=== PATIENT | male | born 1965 | race Caucasian/White ===

== ENCOUNTER 2020-09-09 09:23 | Outpatient (REF) | payer OTHER, SELFPAY ==
--- NOTE | ~2020-09-09 | XR_ITS ---
EXAMINATION: XR CHEST CLINICAL INFORMATION: Asthma COMPARISON: None TECHNIQUE: 2 views of the chest were obtained. FINDINGS: No significant abnormality is noted involving the heart, lungs, mediastinum, bony thorax or soft tissues. XR/XR chest 2V IMPRESSION: Unremarkable examination.
[2020-09-09 10:03] LABS: MANUAL DIFF FLAG NO
[2020-09-09 10:13] LABS: Basophils Absolute Auto 0.1 X10*3/uL (0.0-0.2); Basophils Percent Auto 1.1 % (0-2); Eosinophils Absolute Auto 0.5 X10*3/uL (0.0-0.4); Eosinophils Percent Auto 5.7 % (0-4); Hematocrit 43.8 % (42-52); Hemoglobin 14.4 g/dl (14.0-18.0); Imm Gran Abs Auto 0.03 X10*3/uL (0.00-0.03); Imm Gran Pct Auto 0.4 % (0.0-0.4); Lymphocytes Absolute Auto 3.5 X10*3/uL (1.2-4.9); Lymphocytes Percent Auto 41.2 % (20-40); Mean Corpuscular HGB Conc 32.9 g/dl (31.0-36.0); Mean Corpuscular Hemoglobin 29.9 pg (27.0-33.0); Mean Corpuscular Volume 90.9 fL (80-98); Mean Platelet Volume 10.1 fL (9.4-12.4); Monocytes Absolute Auto 0.8 X10*3/uL (0.1-1.2); Monocytes Percent Auto 9.8 % (2-11); Neutrophils Absolute Auto 3.5 X10*3/uL (2.0-8.3); Neutrophils Percent Auto 41.8 % (45-73); Platelet Count 291 X10*3/uL (160-400); Red Blood Count 4.82 X10*6/uL (4.60-5.80); White Blood Count 8.4 X10*3/uL (4.8-10.8)
[2020-09-09 10:32] LABS: Alanine Aminotransferase 11 U/L (0-40); Alkaline Phosphatase 85 U/L (39-117); Anion Gap 9 (12-20); Aspartate Amino Transferase 18 U/L (5-37); Bilirubin Total 0.4 mg/dL (0.0-1.0); Blood Urea Nitrogen 11 mg/dL (9-16); Calcium 8.7 mg/dL (8.4-10.2); Carbon Dioxide 29 mmol/L (22-29); Chloride 107 mmol/L (96-108); Cholesterol 187 mg/dL; Estimated Glomerular Filt Rate > 60; Glucose Random 88 mg/dL (60-115); HDL Cholesterol 37 mg/dL; LDL Cholesterol Calculated 122 mg/dl; Potassium 4.4 mmol/L (3.3-5.1); Sodium 141 mmol/L (135-145); Total Protein 6.5 g/dL (6.5-8.0); Triglycerides 142 mg/dL
[2020-09-09 10:42] LABS: Free T4 (Free Thyroxine) 0.82 ng/dL (0.71-1.85); Prostate Specific Antigen Scr 3.64 ng/mL (<0.05-4.0); Thyroid Stimulating Hormone 1.73 uIU/mL (0.32-4.0)
[2020-09-10 12:58] LABS: Folate 6.7 ng/mL (> or = 4.0); Vitamin B12 354 pg/mL (200-900)
== END 2020-09-09 09:24 | disposition home or self-care (01) ==
LOC: HO.LAB 09:23
PROVIDERS: PCP Internal Medicine; Visit Provider Internal Medicine
DX: J45.20 Mild intermittent asthma, uncomplicated (principal); K21.9 Gastro-esophageal reflux disease without esophagitis; E78.00 Pure hypercholesterolemia, unspecified; Z12.5 Encounter for screening for malignant neoplasm of prostate
CPT/HCPCS: 36415; 71046; 80053; 80061; 82607; 82746; 84153; 84439; 84443; 85025

== ENCOUNTER → 2020-11-10 13:48 | Outpatient (BNVA) | payer OTHER, SELFPAY | PROVIDERS: PCP Internal Medicine; Referring Provider Internal Medicine; Visit Provider Internal Medicine | DX: R07.2 Precordial pain (principal); F17.200 Nicotine dependence, unspecified, uncomplicated | CPT/HCPCS: 93005 ==

== ENCOUNTER → 2021-03-22 10:53 | Outpatient (REF) | payer OTHER, SELFPAY ==
--- NOTE | 2021-03-22 10:56 | CA_ITS ---
Acquisition Time: 2021-03-22 11:03:10 Total Exercise Time: 00:08:35 Test Indications: CP Medications: SEE CHART Protocol: BRIGIDA Max HR: 176 BPM 106% of Pred: 166 BPM Max BP: 142/080 mmHG Max Work Load: 10.1 METS Exercise stress test with exercise 8 min 35 sec of Brigida protocol, with moderate shortness of breath, no chest discomfort during exercise, with a few isolated PVCs early in recovery, with normotensive response to exercise, without EKG changes meeting criteria for ischemia. When he layed down on the strecher just after peak exercise, he reported a 10 second pressure to right side of chest. Echo images obtained by tech at rest and immediately post peak exercise. Definity contrast used. Test reviewed with Dr Lee. STRESS ECHO : Technique : Images were obtained at rest and immediately post exercise within 1 minute Definty contrast was used to enhance endocardial definition Images were obtianed in multiple views and compared side to side. Findings : Images at rest were borderline due to off axis parasteranl views. Lv systolic function is normal with normal wall motion. Post exercise images are limited due to off axis views. There appear to be adequat overall augmentation of LV systolic function however regional wall motin abmormalities are difficult to assess. Conclusion : Non diagnostic stress echo. Consider alternative imaging if clinically indicated. Referred By: Nigel Stevenson Overread By: SCOOBY LEE MD
== END ==
LOC: HO.CARD 10:53
PROVIDERS: PCP Internal Medicine; Visit Provider Internal Medicine
DX: R07.2 Precordial pain (principal)
CPT/HCPCS: 93350; Q9957

== ENCOUNTER 2021-08-23 10:37 | Outpatient (REF) | payer OTHER, SELFPAY ==
[2021-08-23 14:12] LABS: Anion Gap 12 (12-20); Blood Urea Nitrogen 14 mg/dL (9-16); Calcium 9.3 mg/dL (8.4-10.2); Carbon Dioxide 26 mmol/L (22-29); Chloride 106 mmol/L (96-108); Estimated Glomerular Filt Rate > 60; Glucose Random 91 mg/dL (60-115); Potassium 4.6 mmol/L (3.3-5.1); Sodium 139 mmol/L (135-145)
== END 2021-08-23 10:38 | disposition home or self-care (01) ==
LOC: HO.10HDL 10:37
PROVIDERS: Visit Provider Nurse Practitioner Family
DX: R07.2 Precordial pain (principal); R06.02 Shortness of breath; R94.39 Abnormal result of other cardiovascular function study; F17.200 Nicotine dependence, unspecified, uncomplicated
CPT/HCPCS: 36415; 80048

== ENCOUNTER 2023-01-31 10:35 | Outpatient (AMB) | payer OTHER, SELFPAY ==
[2023-01-31 11:14] VITALS: BP 136/74; PULSE 83; O2SAT 97; BMI 26.6
--- NOTE | 2023-01-31 11:14 | A.OFFPC_ITS ---
Vital Signs 01/31/23 11:14 Height 6 ft 2 in Weight 207 lb BMI 26.6 BP 136/74 Blood Pressure Location Lt brachial Position Sitting Pulse 83 Pulse Source Pulse Oximeter Pulse Oximetry (%) 97 Oxygen Delivery Method Room Air Intake Visit Reasons: 3 month f/u Allergies codeine [CODEINE] Allergy (Unknown, Verified 01/31/23 11:15) LIGHT HEADED , nausea erythromycin base [ERYTHROMYCIN BASE] Allergy (Unknown, Verified 01/31/23 11:15) RASH Medication List - Last Reconciled 01/31/23 by Cammy Penaloza MD albuterol sulfate 90 mcg/actuation (ProAir HFA) 2 puffs inhalation Q6H PRN beclomethasone dipropionate 80 mcg/actuation (Qvar RediHaler) 1 inh inhalation Q12H lorazepam 1 mg PO BID 30 days omeprazole 40 mg PO DAILY quetiapine 100 mg PO BEDTIME 90 days sertraline 25 mg PO DAILY Tobacco use date assessed: 10/24/22 Dental Screening Dental Screen Date: 01/31/23 Did you have a dental visit in the last 12 months?: No Did you have a dental problem in the last 6 months where you did not have access to dental care?: No Was dental information given to patient?: No HPI 3 month f/u HPI Details 57-year-old male smoker with asthma GERD generalized anxiety disorder coming in for follow-up. May last seen advised colonoscopy patient is here for follow-up. Colonoscopy no showed is rescheduled to March 2023 patient continues to smoke and was hoping says to get some additional help with pills as well as on the patch. Patient asks about the CTA that was done August 2021 and question of aneurysm will follow-up on this. Also for the anxiety was asking for higher dose of lorazepam and quetiapine. Discussed that were putting him on Wellbutrin to help with anxiety will hold off from increase in lorazepam but for the Seroquel to help with sleep will increase the dose. PFSH Medical History Abnormal stress test Anxiety Degenerative cervical disc Herniation of left side of L4-L5 intervertebral disc Precordial chest pain Shortness of breath Smoker Surgical History Complete rotator cuff tear of left shoulder Family History Brother Prostate cancer Testicular cancer Renal cancer Ascending aorta dilatation Mother Ovarian cancer Father Multiple myeloma Social History Housing: House Alcohol intake: never Patient Tobacco Use Status: Current everyday Tobacco user Tobacco use type: Cigarette Cigarette Packs Per Day: 1 Cigarettes Per Day: 15 Years Smoked: 40 years. 08/2021 6 a day e-Cigarette/Vaping Use: Never Used Second Hand Smoke Exposure: No service: No Current occupational status: retired Cognitive needs: No Hearing needs: No Vision needs: No Questionnaire PHQ-9 Over the last 2 weeks, how often have you been bothered by any of the following problems? 1. Little interest or pleasure in doing things: not at all 2. Feeling down, depressed, or hopeless: not at all 3. Trouble falling or staying asleep, or sleeping too much: not at all 4. Feeling tired or having little energy: not at all 5. Poor appetite or overeating: not at all 6. Feeling bad about yourself - or that you are a failure or have let yourself or your family down: not at all 7. Trouble concentrating on things, such as reading the newspaper or watching television: not at all 8. Moving or speaking so slowly that other people could have noticed. Or the opposite - being so fidgety or restless that you have been moving around a lot more than usual: not at all 9. Thoughts that you would be better off or of hurting yourself in some way: not at all Total score: 0 Depression Screening Interpretation: Negative [id number] - PHQ-9 Billing: Yes Source: Developed by Drs. Inocencio Valle, Nupur Cooper, Kirt Fuller and colleagues, with an educational jameson from [employer]. Thrive Questionnaire Date Thrive assessed: 10/24/22 AUDIT C Alcohol Use Questionnaire (AUDIT-C) 1. How often do you have a drink containing alcohol?: Never Total Score: 0 CATALINO-7 AMB Questionnaire CATALINO-7 Date CATALINO - 7 assessed: 10/24/22 Source: Developed by Drs. Inocencio Valle, Nupur Cooper, Kirt Fuller and colleagues, with an educational jameson from [employer]. Physical exam (Primary Care) Vital Signs: Last Vital Signs Pulse 83 01/31/23 11:14 BP 136/74 01/31/23 11:14 Pulse Ox 97 01/31/23 11:14 Oxygen Delivery Method Room Air 01/31/23 11:14 BMI result Body Mass Index 26.6 Tobacco/Smoking Status: Tobacco use Status Tobacco use date assessed 10/24/22 01/31/23 11:19 Patient Tobacco Use Status Current everyday Tobacco 01/31/23 11:19 Tobacco use type Cigarette 01/31/23 11:19 e-Cigarette/Vaping Use Never Used 01/31/23 11:19 PHQ-9: PHQ-9 Score PHQ-9: Total score 0 01/31/23 11:42 Depression Screening Interpretation: Negative Thrive Assessment: Date of Thrive Assessment Date Thrive assessed 10/24/22 01/31/23 11:19 Const General: alert; No acute distress Eyes Conjunctivae: conjunctivae normal Resp Auscultation: clear to auscultation bilaterally Cardio Rate: regular rate Rhythm: regular rhythm GI Inspection: Yes normal to inspection Extrem General: Yes normal to inspection and No edema Assessment and Plan Assessment & Plan (1) Tobacco dependence: Code(s): F17.200 - Nicotine dependence, unspecified, uncomplicated Plan: Patient is advised strongly to stop smoking! (2) Generalized anxiety disorder: Comment: declined 05/2021 Code(s): F41.1 - Generalized anxiety disorder Plan: Continue with medications as needed. Anxiety medication added (3) Colon cancer screening: Code(s): Z12.11 - Encounter for screening for malignant neoplasm of colon Plan: Reminded about colon cancer screening- 2022 (4) GERD (gastroesophageal reflux disease): Code(s): K21.9 - Gastro-esophageal reflux disease without esophagitis Qualifiers: Esophagitis presence: without esophagitis Qualified Code(s): K21.9 - Gastro-esophageal reflux disease without esophagitis Plan: Avoid the foods that causes that usually spicy foods, tomato products, juices, coffee, soda and foods that your sensitive to. After eating do not lie down, allow 3-4 hours before in lie down. And keep the head of bed above 30 degrees to avoid the acid from going up. Orders: Orders Vitamin B12 and Folate Today K21.9 - Gastro-esophageal reflux disease without esophagitis Comprehensive Met. Panel Today K21.9 - Gastro-esophageal reflux disease without esophagitis Lipid Panel Today E78.00 - Pure hypercholesterolemia, unspecified, K21.9 - Gastro-esophageal reflux disease without esophagitis Prostate Specific Antigen Scr Today K21.9 - Gastro-esophageal reflux disease without esophagitis Free T4 (Free Thyroxine) Today K21.9 - Gastro-esophageal reflux disease without esophagitis Thyroid Stimulating Hormone Today K21.9 - Gastro-esophageal reflux disease without esophagitis Complete Blood Count Auto Diff Today K21.9 - Gastro-esophageal reflux disease without esophagitis Medications: New bupropion HCl (Wellbutrin SR) 150 mg PO BID 60 tabs 3RF F17.200 - Nicotine dependence, unspecified, uncomplicated nicotine 1 patch transdermal DAILY 28 ea 0RF F17.200 - Nicotine dependence, unspecified, uncomplicated nicotine 1 patch transdermal DAILY 28 ea 0RF F17.200 - Nicotine dependence, unspecified, uncomplicated Changed From quetiapine 100 mg PO BEDTIME 90 days 90 tabs 3RF F41.1 - Generalized anxiety disorder To quetiapine 150 mg PO BEDTIME 90 days 90 tabs 3RF F41.1 - Generalized anxiety disorder Coding Level of Care Code Est Pt Level 4 (26872) Diagnoses Tobacco dependence F17.200 Generalized anxiety disorder F41.1 Colon cancer screening Z12.11 GERD (gastroesophageal reflux disease) K21.9 Esophagitis presence: without esophagitis
== END 2023-01-31 11:56 | disposition home or self-care (01) ==
PROVIDERS: PCP Internal Medicine; Visit Provider Internal Medicine
DX: F17.200 Nicotine dependence, unspecified, uncomplicated (principal); F41.1 Generalized anxiety disorder; Z12.11 Encounter for screening for malignant neoplasm of colon; K21.9 Gastro-esophageal reflux disease without esophagitis
CPT/HCPCS: 99214

== ENCOUNTER 2023-03-08 13:10 | Outpatient (AMB) | payer OTHER, SELFPAY ==
--- NOTE | 2023-03-08 07:50 | A.OFFVIS_ITS ---
Intake Intake Visit Reasons: LDCT SD Allergies codeine [CODEINE] Allergy (Unknown, Verified 01/31/23 11:15) LIGHT HEADED , nausea erythromycin base [ERYTHROMYCIN BASE] Allergy (Unknown, Verified 01/31/23 11:15) RASH HPI LDCT SD HPI Details Initial visit for this 57yo smoker with a 25PYH. Patient has been smoking since age 15 for 42 years at 1/2-4ppd. . Denies marijuana use. Denies second hand smoke exposure. 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 Denies known family history of lung cancer. Denies personal history of cancers. . Denies chest CT in last year. Mid ascending aorta measured 3.8cm on 09/07/2021 chest CTA - no suspicious nodules noted. . Denies recent travel outside the [place]. Denies recent respiratory illness or recent hospitalization for respiratory issues. Reports testing positive for COVID. 08/2021 Admits receiving COVID Vaccine. x2. . Denies fever, chills, new/worsening cough, hemoptysis, hoarseness or dysphagia. Denies significant chest pain, significant dyspnea or unintentional weight loss. Patient Lung Cancer Screening Questionnaire reviewed with patient by provider. . Shared Decision Making Completed. Patient meets criteria. Discussed in detail with patient, the risk vs benefit of LDCT screening. Patient consents to proceed with scan. Discussed smoking cessation. [facility] Medical History (Updated 03/08/23 @ 13:18 by Alexandra Figueroa PA-C) History of COVID-19 Nicotine dependence, cigarettes, uncomplicated Shortness of breath Abnormal stress test Precordial chest pain Degenerative cervical disc Anxiety Herniation of left side of L4-L5 intervertebral disc Surgical History (Updated 02/01/23 @ 12:19 by Alexandra Figueroa PA-C) History of esophagogastroduodenoscopy (EGD) History of colonoscopy Complete rotator cuff tear of left shoulder Family History Brother Prostate cancer Testicular cancer Renal cancer Ascending aorta dilatation Mother Ovarian cancer Father Multiple myeloma Social History (Updated 03/08/23 @ 13:18 by Alexandra Figueroa PA-C) Housing: House Alcohol intake: never Patient Tobacco Use Status: Current everyday Tobacco user Tobacco use type: Cigarette Cigarettes Per Day: 15 Years Smoked: onset 15yo, 1/2-3/4ppd x 42yrsm 25pyh) e-Cigarette/Vaping Use: Never Used Second Hand Smoke Exposure: No service: No Current occupational status: retired Cognitive needs: No Hearing needs: No Vision needs: No Assessment & Plan Assessment & Plan (1) Nicotine dependence, cigarettes, uncomplicated: Comment: (Current smoker - onset 15yo, 1/2-3/4ppd x 42yrsm 25pyh) Code(s): F17.210 - Nicotine dependence, cigarettes, uncomplicated Plan: - SDM visit completed today in office. - Patient meets criteria for LDCT for lung cancer screening purposes and is asymptomatic. - Smoking cessation counseling offered. Patients can always call [phone]. - Will arrange for a LDCT scan of the chest for screening purposes at [facility]. - Risks, benefits, and alternatives were discussed in detail and the patient agrees to proceed. - Risks discussed include but are not limited to: radiation exposure, anxiety during testing and while awaiting results, false negatives, false positives and possibility of additional intervention such as further imaging or surgical procedures for benign disease. - Benefits are obviously detection of lung cancer at an early stage which can lead to improved outcomes. - Discussed the importance of screening program compliance with adherence to yearly LDCT scan as scheduled - or sooner interval scans for personalized screening regimen. - Discussed follow up plan. Our office will send a letter discussing results and if needed set up phone call and office visit based on CT findings. - Patient educated on results categorization and the management decisions for suspicious findings potentially found on the screening LDCT scan. Any patient with a Lung RADS score of 3 or 4 will be reviewed by a multidisciplinary team at [facility] to form a plan of action in regards to scan findings. - If further work up is warranted for a suspicious lung finding this will be followed by the Lung Cancer Screening program in conjunction with the Thoracic Surgery Department at [facility]. - A copy of the office note and LDCT will be sent to the patient's PCP - as well as documentation on any associated further plans of care. - Incidental findings on LDCT are the PCP's responsibility. These findings are indicated with an S finding on the LDCT Assessment. A note discussing the findings will be sent to the PCP who is then responsible for further management. - All questions answered.? Coding Level of Care Code Lung Cancer Screening G0296 Diagnoses Nicotine dependence, cigarettes, uncomplicated F17.210
== END 2023-03-08 13:45 | disposition home or self-care (01) ==
PROVIDERS: PCP Internal Medicine; Visit Provider Physician Assistant Medical
DX: F17.210 Nicotine dependence, cigarettes, uncomplicated (principal)
CPT/HCPCS: G0296

== ENCOUNTER 2023-03-08 13:33 | Outpatient (REF) | payer OTHER, SELFPAY ==
--- NOTE | ~2023-03-08 | CT_ITS ---
EXAMINATION: CT CHEST SCREENING CLINICAL INFORMATION: Nicotine dependence; 40 pack-year smoking history; current smoker. COMPARISON: None available. TECHNIQUE: Multidetector volumetric CT imaging of the chest is performed without contrast using low dose technique. Additional 2D coronal and sagittal reformatted images and axial 3D maximum intensity projection (MIP) images are generated on the CT workstation. This CT examination was performed using dose optimization techniques as appropriate, variously including the following: *Automated exposure control *Adjustment of mA and/or kV according to patient size (this includes techniques or standardized protocols for targeted exams where dose is matched to indication/reason for exam; i.e. extremities or head) *Use of iterative reconstruction technique DLP: 59 mGy-cm FINDINGS: LUNGS: There is mild biapical pleural and parenchymal scarring. Within the anterior segment of the right upper lobe (5:20), a 9 x 5 mm spiculated nodule is seen. Within the lateral basal segment of the right lower lobe (5:331), a 1.0 x 0.6 cm spiculated nodule versus focus of scar/subsegmental atelectasis is seen. There is no mass, infiltrate or groundglass opacity. No generalized increase is seen in peripheral interlobular septal markings. At the medial right base (5: Decreased 97), a 2.2 cm bulla is noted. No generalized small airway thickening is seen. The central airways appear patent. MEDIASTINUM: The mediastinum is normal. CORONARY ARTERY CALCIFICATION: Minimal. PLEURA: There is no pleural effusion. No pleural mass or thickening. AXILLA: No lymphadenopathy. UPPER ABDOMEN: Unremarkable OSSEOUS STRUCTURES: There is mild thoracolumbar spondylosis. No acute or aggressive osseous abnormality is seen. CT/CT lung screening IMPRESSION: 1. 9 mm right upper lobe and 1.0 cm right lower lobe nodular densities are seen. Whether these represent true nodules are are related to postoperative scarring is not appreciated with certainty. 2. No mass, infiltrate or groundglass opacity is seen. 3. There is no thoracic lymphadenopathy or pleural effusion. 4. No aggressive osseous lesion is seen ASSESSMENT: Lung-RADS category 4A: Suspicious RECOMMENDATION: Short interval 3 month follow up low dose CT chest. Consider PET/CT.
== END 2023-03-08 13:34 | disposition home or self-care (01) ==
LOC: HO.CT 13:33
PROVIDERS: PCP Internal Medicine; Visit Provider Physician Assistant Medical
DX: Z12.2 Encounter for screening for malignant neoplasm of respiratory organs (principal); F17.210 Nicotine dependence, cigarettes, uncomplicated
CPT/HCPCS: 71271; G0296

== ENCOUNTER 2023-03-26 12:07 | Outpatient (REF) | payer OTHER, SELFPAY ==
--- NOTE | ~2023-03-26 | PE_ITS ---
EXAMINATION: Fluorine-18 FDG PET/CT Scan CLINICAL INDICATION: Initial treatment management. Pulmonary nodule. PROCEDURE: 55 minutes following the intravenous administration of 23.5 mCi of fluorine 18 FDG, images from the base of the skull to the mid thighs were obtained using a combined PET/CT scanner with CT scan based attenuation correction. No oral contrast was administered. No intravenous contrast was administered. Transverse, coronal, sagittal, and volume reconstruction projections were obtained. The patient's blood glucose as determined by a finger stick, was 88 mg/dl immediately prior to injection. Total CT exam dose-length product 805.83 mGy-cm * These CT images were obtained using dose optimization techniques as appropriate, variously including the following: Automated exposure control * Adjustment of mA and/or kV according to patient size (this includes techniques or standardized protocols for targeted exams where dose is matched to indication/reason for exam; i.e. extremities or head) * Use of iterative reconstruction technique COMPARISON: No previous PET/CT scan is available for comparison. CT scan of the chest dated 03/08/2023 is available for comparison. The report of a CT scan of the abdomen and pelvis dated 08/21/2010 is available, but the images from that study are not available for review. FINDINGS: (Slice numbers described in this report are numbered superiorly to inferiorly with slice #1 in the head) NECK AND VISUALIZED HEAD: No foci of abnormal FDG activity are noted. The distribution of FDG activity is physiological. There is no cervical lymphadenopathy. THORAX: Small pulmonary nodules visualized on the 03/08/[address] scan are again visualized. These include a spiculated 0.8 x 0.4 cm nodule anteriorly in the right upper lobe, slice 79/267. This is too small to be characterized on the FDG PET images. It appears unchanged compared to the 03/08/2023 study. Also visualized this posterolaterally in the right lower lobe a 1.1 x 0.5 cm spiculated nodule, also too small to be characterized on the FDG PET images. No additional suspicious nodules are visualized. There are no foci of abnormal FDG activity in the chest. Minimal biapical scarring is present with no associated abnormal FDG activity. There is no mediastinal, supraclavicular, or axillary lymphadenopathy. There is no pleural or pericardial fluid, or pneumothorax. ABDOMEN AND PELVIS: There are no foci of abnormal FDG activity in the abdomen or pelvis. The liver, gallbladder, and spleen are unremarkable. The kidneys, adrenal glands and pancreas are unremarkable. There is mild FDG activity throughout the gastrointestinal tract without a suspicious focal component, likely physiological. There is mild diverticulosis without evidence of diverticulitis. The hollow viscera are otherwise unremarkable. The prostate gland is enlarged measuring 5.2 cm in largest transverse dimension. There is mild diffuse FDG activity in the prostate without a focal component, likely physiological. The pelvic organs are otherwise unremarkable. MUSCULOSKELETAL: There are no foci of abnormal FDG activity in the osseous structures. There are mild degenerative changes in the spine, most prominently adjacent to the L5/S1 disc space but there is no associated abnormal FDG activity. There are no suspicious sclerotic or lytic lesions visualized. VASCULAR: Scattered vascular calcifications are present. Reference SUVmax Levels: Mediastinal Blood Pool: 2.7, Slice 94/267 Liver: 4.2, Slice 131/267 PET/PET CT fusion skull to thigh IMPRESSION: 1. Small pulmonary nodules are visualized in the right lung as described above. These are too small to be accurately characterized on the FDG PET images. Follow-up with diagnostic CT imaging in approximately 3 months is recommended. 2. Prostatomegaly. 3. No additional abnormalities suspicious for metastatic or other malignant lesions are noted.
== END 2023-03-26 12:08 | disposition home or self-care (01) ==
LOC: HO.PET 12:07
PROVIDERS: PCP Internal Medicine; Visit Provider Surgery
DX: Z13.89 Encounter for screening for other disorder (principal)

== ENCOUNTER → 2023-05-15 13:48 | Outpatient (REF) | payer OTHER, SELFPAY ==
--- NOTE | 2023-05-15 13:52 | CA_ITS ---
Transthoracic Echocardiogram Patient (Last, First, Middle): Cristino Curtis J Gender: Male Date of : 1965 Age: 57 Procedure Date: 05/15/2023 Procedure Type: Transthoracic Echocardiogram Location: OP Height: 187.96 cm Weight: 99.79 kg BSA: 2.26 m2 Heart Rate: 70 bpm BP: 158 / 72 mmHg Control Chemist: SB Referring MD: Cammy Penaloza MD Symptoms: I77.810 - Thoracic aortic ectasia Study Quality: Adequate ECG Rhythm: Sinus Conclusions: - The left ventricular systolic function is normal. The visually estimated ejection fraction is between 55-60%. - The basal inferior, mid inferoseptal, and basal anteroseptal segments are hypokinetic. - No obvious valvular pathology seen on this study. - There is mild dilatation of the ascending aorta measuring 4.00 cm. Findings Left Ventricle Normal left ventricular cavity size. There is normal left ventricular wall thickness. The left ventricular systolic function is normal. The visually estimated ejection fraction is between 55-60%. Diastolic function is normal for age. Wall Motion Rest Echo Findings The basal inferior, mid inferoseptal, and basal anteroseptal segments are hypokinetic. Right Ventricle Normal right ventricular cavity size and systolic function. Atria Both atria are normal in size. Aortic Valve There is a normal trileaflet aortic valve. There is no aortic valve stenosis. There is no aortic valve regurgitation. Mitral Valve The mitral valve appears normal. There is no mitral valve regurgitation. There is no mitral valve stenosis. Pulmonic Valve The pulmonic valve is likely normal. Tricuspid Valve Normal tricuspid valve structure. There is trace tricuspid valve regurgitation. There is no evidence of pulmonary hypertension. Great Vessels There is mild dilatation of the ascending aorta measuring 4.00 cm. Venous The inferior vena cava is normal in size and collapses greater than 50% with inspiration. Pericardium/Pleural There is no evidence of pericardial effusion. Prior Study Comparison No prior study available for comparison. Recommendations, Care & Conclusions No obvious valvular pathology seen on this study. Measurements 2D Linear Measurements IVSd: 0.86 0.6-0.9/0.6-1.0 cm LVIDd: 4.05 3.9-5.3/4.2-5.9 cm LVIDd Index: 1.79 2.4-3.2/2.2-3.1 cm/m2 LVIDs: 3.04 2.0-3.6 cm LVPWd: 0.69 0.7-1.1 cm LA Diam: 2.80 2.7-3.8/3.0-4.0 cm LAIDs Index: 1.24 1.5-2.3 cm/m2 LV Mass: 113.65 67-162/88-224 g LV Mass Index: 50.29 43-95/49-115 g/m2 LVOT Diam: 2.50 3.0+(-)1.3 cm 2D Systolic Function EF 2C: 56.40 >55% Mitral Valve MV Pk E: 0.59 MV PK A: 0.54 MV Decel Time: 257.00 E/A: 1.10 E'Lateral: 7.94 E'Medial: 7.62 E/E' Med: 7.70 E/E' Lat: 7.40 PHT: 75.00 MVA PHT: 2.93 Decel [place]: 2.28 Aortic Valve AoV Pk Armando: 1.21 AoV Mn Armando: 0.84 AoV VTI: 0.24 AoV Pk Grad: 6.00 Aov Mn Grad: 3.00 TRELL Cont.VTI: 4.32 LVOT LVOT Pk Armando: 1.08 LVOT Mn Armando: 0.78 LVOT VTI: 0.21 LVOT Pk Grad: 5.00 LVOT Mn Grad: 3.00 LVOT Diam: 2.50 LVOT Area: 4.91 Diastolic Function MV Pk E: 0.59 MV Pk A: 0.54 E/A: 1.10 E'Medial: 7.62 E/E' Med: 7.70 E' Laterial: 7.94 E/E' Lat: 7.40 Right Ventricle TAPSE (mm): 19.40 TVS' Armando: 12.50 Tricuspid Valve TR Pk Armando: 1.96 TR Pk Grad: 15.00 RA Press: 3.00 RVSP: 18.00 Great Vessels Aorta Sinus of Valsalva: 3.50 2.0-3.5 cm Ao Asc: 4.00 2.1-3.4 cm Pulmonary Veins Pulm Vein S/D 1.00 Pulmonary Valve PV Pk Armando: 0.76 Peak PV Grad: 2.00 Updated in Other Vendor System with Status of Final Nigel Stevenson MD electronically signed on 05/17/2023 12:09:45 PM with status of Final
[2023-05-15 14:00] LABS: MANUAL DIFF FLAG NO
[2023-05-15 14:35] LABS: Basophils Absolute Auto 0.1 X10*3/uL (0.0-0.2); Basophils Percent Auto 1.4 % (0-2); Eosinophils Absolute Auto 0.4 X10*3/uL (0.0-0.4); Eosinophils Percent Auto 4.7 % (0-4); Hematocrit 45.3 % (42.0-52.0); Hemoglobin 15.2 g/dl (14.0-18.0); Imm Gran Abs Auto 0.02 X10*3/uL (0.00-0.03); Imm Gran Pct Auto 0.2 % (0.0-0.4); Lymphocytes Absolute Auto 3.6 X10*3/uL (1.2-4.9); Lymphocytes Percent Auto 40.5 % (20-40); Mean Corpuscular HGB Conc 33.6 g/dl (31.0-36.0); Mean Corpuscular Hemoglobin 30.5 pg (27.0-33.0); Mean Corpuscular Volume 90.8 fL (80.0-98.0); Mean Platelet Volume 10.1 fL (9.4-12.4); Monocytes Absolute Auto 0.7 X10*3/uL (0.1-1.2); Monocytes Percent Auto 8.4 % (2-11); Neutrophils Absolute Auto 3.9 x10*3/uL (2.0-8.3); Neutrophils Percent Auto 44.8 % (45-73); Platelet Count 375 X10*3/uL (160-400); Red Blood Count 4.99 X10*6/uL (4.60-5.80); Red Cell Distribution Width 13.4 % (11.0-16.0); White Blood Count 8.8 X10*3/uL (4.8-10.8)
[2023-05-15 15:23] LABS: Alanine Aminotransferase 14 U/L (0-40); Alkaline Phosphatase 94 U/L (39-117); Anion Gap 10 (12-20); Aspartate Amino Transferase 23 U/L (5-37); Bilirubin Total 0.3 mg/dL (0.0-1.0); Blood Urea Nitrogen 10 mg/dL (9-16); Calcium 9.4 mg/dL (8.4-10.2); Carbon Dioxide 28 mmol/L (22-29); Chloride 106 mmol/L (96-108); Cholesterol 195 mg/dL (<200); Estimated Glomerular Filt Rate > 60; Glucose Random 96 mg/dL (60-115); HDL Cholesterol 33 mg/dL (>40); LDL Cholesterol Calculated 124 mg/dL (<100); Potassium 4.1 mmol/L (3.3-5.1); Sodium 140 mmol/L (135-145); Total Protein 7.1 g/dL (6.5-8.0); Triglycerides 192 mg/dL (<150)
[2023-05-15 15:33] LABS: Free T4 (Free Thyroxine) 0.92 ng/dL (0.71-1.85); Thyroid Stimulating Hormone 1.61 uIU/mL (0.32-4.0)
[2023-05-15 15:41] LABS: Folate 5.4 ng/mL (> or = 4.0); Prostate Specific Antigen Scr 4.16 ng/mL (<0.05-4.0); Vitamin B12 406 pg/mL (200-900)
== END ==
LOC: HO.CARD 13:48
PROVIDERS: PCP Internal Medicine; Visit Provider Internal Medicine
DX: Z12.5 Encounter for screening for malignant neoplasm of prostate (principal); I77.810 Thoracic aortic ectasia; E78.00 Pure hypercholesterolemia, unspecified; K21.9 Gastro-esophageal reflux disease without esophagitis
CPT/HCPCS: 36415; 80053; 80061; 82607; 82746; 84153; 84439; 84443; 85025; 93306

== ENCOUNTER → 2023-05-15 13:52 | Outpatient (BNV) | payer OTHER, SELFPAY | PROVIDERS: PCP Internal Medicine; Visit Provider Internal Medicine | DX: I77.810 Thoracic aortic ectasia (principal) | CPT/HCPCS: 93306 ==

== ENCOUNTER 2023-06-14 09:27 | Outpatient (AMB) | payer OTHER, SELFPAY ==
[2023-06-14 09:33] VITALS: BP 120/90; PULSE 82; RESP 17; BMI 27.5
--- NOTE | 2023-06-14 09:33 | MHC.PC.OV ---
Vital Signs 06/14/23 09:33 Height 6 ft 2 in Weight 214 lb BMI 27.5 BP 120/90 H Blood Pressure Location Lt brachial Position Sitting Respiration 17 Pulse 82 Pulse Source Palpation Intake Visit Reasons: Med Follow up Shutdown Planner Required: No Accompanied by: Self / Same As Patient Allergies codeine [CODEINE] Allergy (Unknown, Verified 06/14/23 09:34) LIGHT HEADED , nausea erythromycin base [ERYTHROMYCIN BASE] Allergy (Unknown, Verified 06/14/23 09:34) RASH Tobacco use date assessed: 10/24/22 Dental Screening Dental Screen Date: 06/14/23 Did you have a dental visit in the last 12 months?: No Did you have a dental problem in the last 6 months where you did not have access to dental care?: Yes Was dental information given to patient?: Yes HPI Med Follow up HPI Details 57-year-old overweight male smoker with generalized anxiety disorder GERD last seen in January 2023 advised colonoscopy. Patient has a mild dilatation of the ascending aorta and the echocardiogram done May 2020 showing left ventricular systolic function of 55-60% has a basal inferior mid inferoseptal and basal anteroseptal segments hypokinetic mild dilatation of the ascending aorta measuring 4 cm.. Patient also had a PET scan done showing small pulmonary nodules in the right lung advised follow-up diagnostic CT in 3 months this was done due to a CT scan done in March 2023 for 9 mm upper lobe 1 cm right lower lobe nodule. repeat CT scan 06/27/2023- decreased 5 cigarettes a day [facility] Medical History (Updated 06/14/23 @ 10:36 by Cammy Penaloza MD) History of COVID-19 Nicotine dependence, cigarettes, uncomplicated Shortness of breath Abnormal stress test Precordial chest pain Degenerative cervical disc Anxiety Herniation of left side of L4-L5 intervertebral disc Surgical History History of esophagogastroduodenoscopy (EGD) History of colonoscopy Complete rotator cuff tear of left shoulder Family History Brother Prostate cancer Testicular cancer Renal cancer Ascending aorta dilatation Mother Ovarian cancer Father Multiple myeloma Social History Housing: House Alcohol intake: never Patient Tobacco Use Status: Current everyday Tobacco user Tobacco use type: Cigarette Cigarettes Per Day: 15 Years Smoked: onset 15yo, 1/2-3/4ppd x 42yrsm 25pyh) Packs per year/per ci.00 e-Cigarette/Vaping Use: Never Used Second Hand Smoke Exposure: No service: No Current occupational status: retired 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 Inocencio Valle, Nupur Cooper, Kirt Fuller and colleagues, with an educational jameson from [employer]. Physical exam (Primary Care) Vital Signs: Last Vital Signs Pulse 82 06/14/23 09:33 Resp 17 06/14/23 09:33 BP 120/90 H 06/14/23 09:33 BMI result Body Mass Index 27.5 Tobacco/Smoking Status: Tobacco use Status Tobacco use date assessed 10/24/22 06/14/23 09:34 Patient Tobacco Use Status Current everyday Tobacco 06/14/23 09:34 Tobacco use type Cigarette 06/14/23 09:34 e-Cigarette/Vaping Use Never Used 06/14/23 09:34 Thrive Assessment: Date of Thrive Assessment Date Thrive assessed 10/24/22 06/14/23 09:34 Const General: alert; No acute distress Eyes Conjunctivae: conjunctivae normal Resp Auscultation: clear to auscultation bilaterally Cardio Rate: regular rate Rhythm: regular rhythm GI Inspection: Yes normal to inspection Extrem General: Yes normal to inspection and No edema Assessment and Plan Assessment & Plan (1) Pulmonary nodules: Comment: (9x5cm RUL spiculated nodule, 10x6mm RLL spiculated nodule on 03/08/23 LDCT - plan is for PFTs, PET scan and f/u with Dr. Hand at [facility]) Code(s): R91.8 - Other nonspecific abnormal finding of lung field Plan: Patient is being followed up by the thoracic surgeon concern about the nodule in the CT scan and was followed up with a PET scan which was negative (2) Tobacco abuse: Code(s): Z72.0 - Tobacco use Plan: Patient is strongly advised to stop smoking summation (3) Abnormal PSA: Code(s): R97.20 - Elevated prostate specific antigen [PSA] Plan: Will need to do a repeat testing of the prostate number (4) Ascending aorta dilatation: Comment: (mid ascending aorta measured 3.8cm on 09/07/2021 chest CTA) May 2023 4 cm Code(s): I77.810 - Thoracic aortic ectasia Plan: May 2023 test 4 cm will continue to follow-up (5) Asthma: Code(s): J45.909 - Unspecified asthma, uncomplicated Qualifiers: Asthma severity: mild Asthma persistence: intermittent Asthma complication type: uncomplicated Qualified Code(s): J45.20 - Mild intermittent asthma, uncomplicated Plan: Stop smoking! (6) GERD (gastroesophageal reflux disease): Code(s): K21.9 - Gastro-esophageal reflux disease without esophagitis Qualifiers: Esophagitis presence: without esophagitis Qualified Code(s): K21.9 - Gastro-esophageal reflux disease without esophagitis Plan: Avoid the foods that causes that usually spicy foods, tomato products, juices, coffee, soda and foods that your sensitive to. After eating do not lie down, allow 3-4 hours before in lie down. And keep the head of bed above 30 degrees to avoid the acid from going up. (7) Generalized anxiety disorder: Comment: declined 05/2021 Code(s): F41.1 - Generalized anxiety disorder Plan: Continue with medications (8) Abnormal echocardiogram: Comment: 05/2023The left ventricular systolic function is normal. The visually estimated ejection fraction is between 55-60%. - The basal inferior, mid inferoseptal, and basal anteroseptal segments are hypokinetic. - No obvious valvular pathology seen on this study. - There is mild dilatation of the ascending aorta measuring 4.00 cm. Code(s): R93.1 - Abnormal findings on diagnostic imaging of heart and coronary circulation Plan: referral cardiology (9) Blood pressure elevated without history of HTN: Code(s): R03.0 - Elevated blood-pressure reading, without diagnosis of hypertension Plan: monitor BP at home and record and ff up Orders: Referrals Cardiology Referral R93.1 - Abnormal findings on diagnostic imaging of heart and coronary circulation Medications: New budesonide-formoterol 160-4.5 mcg/actuation (Symbicort) 2 puffs inhalation Q12H 10.2 grams 4RF J45.20 - Mild intermittent asthma, uncomplicated Refilled lorazepam 1 mg PO BID 60 tabs 0RF 30 days F41.9 - Anxiety disorder, unspecified Discontinued bupropion HCl (Wellbutrin SR) Discontinued Reason: Patient Refused 150 mg PO BID 60 tabs 3RF F17.200 - Nicotine dependence, unspecified, uncomplicated Coding Level of Care Code Est Pt Level 4 (91740) Diagnoses Pulmonary nodules R91.8 Tobacco abuse Z72.0 Abnormal PSA R97.20 Ascending aorta dilatation I77.810 Mild intermittent asthma without complication J45.20 Asthma severity: mild Asthma persistence: intermittent Asthma complication type: uncomplicated Gastroesophageal reflux disease without esophagitis K21.9 Esophagitis presence: without esophagitis Generalized anxiety disorder F41.1 Abnormal echocardiogram R93.1 Blood pressure elevated without history of HTN R03.0
== END 2023-06-14 10:45 | disposition home or self-care (01) ==
PROVIDERS: PCP Internal Medicine; Visit Provider Internal Medicine
DX: R91.8 Other nonspecific abnormal finding of lung field (principal); Z72.0 Tobacco use; R97.20 Elevated prostate specific antigen [PSA]; I77.810 Thoracic aortic ectasia; J45.20 Mild intermittent asthma, uncomplicated; K21.9 Gastro-esophageal reflux disease without esophagitis; F41.1 Generalized anxiety disorder; R93.1 Abnormal findings on diagnostic imaging of heart and coronary circulation; R03.0 Elevated blood-pressure reading, without diagnosis of hypertension
CPT/HCPCS: 99214

== ENCOUNTER 2023-06-27 12:45 | Outpatient (REF) | payer OTHER, SELFPAY | END 2023-06-27 12:46 | disposition home or self-care (01) | LOC: HO.CT 12:45 | PROVIDERS: PCP Internal Medicine; Visit Provider Surgery | DX: R91.8 Other nonspecific abnormal finding of lung field (principal) | CPT/HCPCS: 71250 ==

== ENCOUNTER 2023-07-22 12:57 | Outpatient (AMB) | payer OTHER, SELFPAY ==
--- NOTE | 2023-07-22 12:58 | A.OFFPC_ITS ---
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: No Allergies codeine [CODEINE] Allergy (Unknown, Verified 07/22/23 12:59) LIGHT HEADED , nausea erythromycin base [ERYTHROMYCIN BASE] Allergy (Unknown, Verified 07/22/23 12:59) RASH Tobacco use date assessed: 07/22/23 Dental Screening Dental Screen Date: 07/22/23 Did you have a dental visit in the last 12 months?: Yes Did you have a dental problem in the last 6 months where you did not have access to dental care?: No Was dental information given to patient?: Patient has dentist HPI smoker , anxiety HPI Details 58-year-old overweight male smoker with a history of pulmonary nodules abnormal PSA abdominal aorta dilatation asthma GERD generalized anxiety disorder coming in for follow-up. Patient was referred cardiology. And as for colonoscopy patient is overdue. CT scan of the chest done in July 2023. Nodules probably benign advised to repeat in 6 months. As for the ascending aorta aneurysm advised referral to Cardiology. BP good at home - echo results given to pateint. hx of heart arrhythmia. [facility] Medical History (Updated 07/22/23 @ 13:22 by Cammy Penaloza MD) History of COVID-19 Nicotine dependence, cigarettes, uncomplicated Shortness of breath Abnormal stress test Precordial chest pain Degenerative cervical disc Anxiety Herniation of left side of L4-L5 intervertebral disc Surgical History History of esophagogastroduodenoscopy (EGD) History of colonoscopy Complete rotator cuff tear of left shoulder Family History Brother Prostate cancer Testicular cancer Renal cancer Ascending aorta dilatation Mother Ovarian cancer Father Multiple myeloma Social History Housing: House Alcohol intake: never Patient Tobacco Use Status: Current everyday Tobacco user Tobacco use type: Cigarette Cigarettes Per Day: 15 Years Smoked: onset 15yo, 1/2-3/4ppd x 42yrsm 25pyh) Packs per year/per ci.00 e-Cigarette/Vaping Use: Never Used Second Hand Smoke Exposure: No service: No Current occupational status: retired 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 1. Little interest or pleasure in doing things: not at all 2. Feeling down, depressed, or hopeless: not at all 3. Trouble falling or staying asleep, or sleeping too much: not at all 4. Feeling tired or having little energy: not at all 5. Poor appetite or overeating: not at all 6. Feeling bad about yourself - or that you are a failure or have let yourself or your family down: not at all 7. Trouble concentrating on things, such as reading the newspaper or watching television: not at all 8. Moving or speaking so slowly that other people could have noticed. Or the opposite - being so fidgety or restless that you have been moving around a lot more than usual: not at all 9. Thoughts that you would be better off or of hurting yourself in some way: not at all Total score: 0 Depression Screening Interpretation: Negative Depression Screening Done: Yes Source: Developed by Drs. Inocencio Valle, Nupur Cooper, Kirt Fuller and colleagues, with an educational jameson from [employer]. Thrive Questionnaire Date Thrive assessed: 07/22/23 AUDIT C Alcohol Use Questionnaire (AUDIT-C) 1. How often do you have a drink containing alcohol?: Never Total Score: 0 CATALINO-7 AMB Questionnaire CATALINO-7 Date CATALINO - 7 assessed: 07/22/23 Feeling nervous, anxious, or on edge: 0 = Not at all Not being able to stop or control worryin = Not at all Worrying too much about different things: 0 = Not at all Trouble relaxin = Not at all Being so restless that it is hard to sit still: 0 = Not at all Becoming easily annoyed or irritable: 0 = Not at all Feeling afraid as if something awful might happen: 0 = Not at all Total CATALINO-7 score (0-4 normal; 5-9 mild; 10-14 moderate; 15-21 severe): 0 Source: Developed by Drs. Inocencio Valle, Nupur Cooper, Kirt Fuller and colleagues, with an educational jameson from [employer]. Physical exam (Primary Care) Vital Signs: Last Vital Signs Pulse 61 07/22/23 12:59 BP 102/70 07/22/23 12:59 Pulse Ox 97 07/22/23 12:59 Oxygen Delivery Method Room Air 07/22/23 12:59 BMI result Body Mass Index 27.5 Tobacco/Smoking Status: Tobacco use Status Tobacco use date assessed 07/22/23 07/22/23 12:59 Patient Tobacco Use Status Current everyday Tobacco 07/22/23 12:59 Tobacco use type Cigarette 07/22/23 12:59 e-Cigarette/Vaping Use Never Used 07/22/23 12:59 PHQ-9: PHQ-9 Score PHQ-9: Total score 0 07/22/23 13:15 Depression Screening Interpretation: Negative Thrive Assessment: Date of Thrive Assessment Date Thrive assessed 07/22/23 07/22/23 12:59 Const General: alert; No acute distress Eyes Conjunctivae: conjunctivae normal Resp Auscultation: clear to auscultation bilaterally Cardio Rate: regular rate Rhythm: regular rhythm GI Inspection: Yes normal to inspection Extrem General: Yes normal to inspection and No edema Assessment and Plan Assessment & Plan (1) Abnormal echocardiogram: Comment: 05/2023The left ventricular systolic function is normal. The visually estimated ejection fraction is between 55-60%. - The basal inferior, mid inferoseptal, and basal anteroseptal segments are hypokinetic. - No obvious valvular pathology seen on this study. - There is mild dilatation of the ascending aorta measuring 4.00 cm. Code(s): R93.1 - Abnormal findings on diagnostic imaging of heart and coronary circulation Plan: Patient has been called upon this to seek Cardiology for schedule (2) Abnormal PSA: Code(s): R97.20 - Elevated prostate specific antigen [PSA] Plan: This needs to be repeated, reminded about the blood work needed (3) Pulmonary nodules: Comment: (9x5cm RUL spiculated nodule, 10x6mm RLL spiculated nodule on 03/08/23 LDCT - plan is for PFTs, PET scan and f/u with Dr. [facility] at [facility]) Code(s): R91.8 - Other nonspecific abnormal finding of lung field Plan: July 2023 CT scan advised repeat in 6 months (4) Ascending aorta dilatation: Comment: (mid ascending aorta measured 3.8cm on 09/07/2021 chest CTA) May [address] scan 4.1 cm Code(s): I77.810 - Thoracic aortic ectasia Plan: July 2023 CT scan 4.1 cm, awaiting for Cardiology schedule (5) Generalized anxiety disorder: Comment: declined 05/2021 Code(s): F41.1 - Generalized anxiety disorder Plan: Continue with present medication (6) GERD (gastroesophageal reflux disease): Code(s): K21.9 - Gastro-esophageal reflux disease without esophagitis Qualifiers: Esophagitis presence: without esophagitis Qualified Code(s): K21.9 - Gastro-esophageal reflux disease without esophagitis Plan: Avoid the foods that causes that usually spicy foods, tomato products, juices, coffee, soda and foods that your sensitive to. After eating do not lie down, allow 3-4 hours before in lie down. And keep the head of bed above 30 degrees to avoid the acid from going up. n (7) Ulcerative colitis: Onset Date: ~1999 Comment: Dr. Ovalle Code(s): K51.90 - Ulcerative colitis, unspecified, without complications Qualifiers: Ulcerative colitis location: ulcerative pancolitis Digestive disease complication type: without complication Qualified Code(s): K51.00 - Ulcerative (chronic) pancolitis without complications Plan: Advised follow-up with Gastroenterology (8) Colon cancer screening: Code(s): Z12.11 - Encounter for screening for malignant neoplasm of colon Plan: Reminded about colonoscopy Coding Level of Care Code Est Pt Level 4 (25626) Diagnoses Abnormal echocardiogram R93.1 Abnormal PSA R97.20 Pulmonary nodules R91.8 Ascending aorta dilatation I77.810 Generalized anxiety disorder F41.1 Gastroesophageal reflux disease without esophagitis K21.9 Esophagitis presence: without esophagitis Ulcerative pancolitis without complication K51.00 Ulcerative colitis location: ulcerative pancolitis Digestive disease complication type: without complication Colon cancer screening Z12.11
[2023-07-22 12:59] VITALS: BP 102/70; PULSE 61; O2SAT 97; BMI 27.5
== END 2023-07-22 13:33 | disposition home or self-care (01) ==
PROVIDERS: PCP Internal Medicine; Visit Provider Internal Medicine
DX: R93.1 Abnormal findings on diagnostic imaging of heart and coronary circulation (principal); I77.810 Thoracic aortic ectasia; K51.00 Ulcerative (chronic) pancolitis without complications; R97.20 Elevated prostate specific antigen [PSA]; R91.8 Other nonspecific abnormal finding of lung field; F41.1 Generalized anxiety disorder; K21.9 Gastro-esophageal reflux disease without esophagitis; Z12.11 Encounter for screening for malignant neoplasm of colon
CPT/HCPCS: 99214

== ENCOUNTER 2023-07-31 13:02 | Outpatient (AMB) | payer OTHER, SELFPAY ==
--- NOTE | 2023-07-31 13:06 | A.OFFVIS_ITS ---
Intake Vital Signs 07/31/23 13:07 Height 6 ft 2 in Weight 207 lb 3.752 oz BMI 26.6 BP 116/86 Blood Pressure Location Lt brachial Position Sitting Pulse 97 Intake Visit Reasons: fu /Dr. Penaloza/ Intake Note: follow up Board Winder Required: No Accompanied by: Brother Allergies codeine [CODEINE] Allergy (Unknown, Verified 07/31/23 13:08) LIGHT HEADED , nausea erythromycin base [ERYTHROMYCIN BASE] Allergy (Unknown, Verified 07/31/23 13:08) RASH Medication List - Last Reconciled 07/31/23 by Nigel Stevenson MD albuterol sulfate 90 mcg/actuation (ProAir HFA) 2 puffs inhalation Q6H PRN beclomethasone dipropionate 80 mcg/actuation (Qvar RediHaler) 1 inh inhalation Q12H lorazepam 1 mg PO BID 30 days nicotine 1 patch transdermal DAILY nicotine 1 patch transdermal DAILY omeprazole 40 mg PO DAILY quetiapine 150 mg (3 x 50 mg) PO BEDTIME 90 days sertraline 25 mg PO DAILY HPI HPI Comments History of Present Illness Details Cristino has been referred back for evaluation due to abnormal findings on echocardiogram. He was last seen in 2020 for complaints of chest pain. At that time, he underwent an exercise stress echocardiogram as well as coronary CTA but had not followed up since. He has a heavy smoker and smoked as much as 40 cigarettes a day in the past but more recently somewhat lower. It seems that he underwent echocardiogram due to family history of aortic aneurysm but that showed some wall motion abnormalities as well and hence he is referred. He gets some twinges in the chest off and on but no clear-cut exertional patterns. Otherwise, generally feels okay. [facility] History (Updated 07/22/23 @ 13:22 by Cammy Penaloza MD) History of COVID-19 Nicotine dependence, cigarettes, uncomplicated Shortness of breath Abnormal stress test Precordial chest pain Degenerative cervical disc Anxiety Herniation of left side of L4-L5 intervertebral disc Surgical History History of esophagogastroduodenoscopy (EGD) History of colonoscopy Complete rotator cuff tear of left shoulder Family History Brother Prostate cancer Testicular cancer Renal cancer Ascending aorta dilatation Mother Ovarian cancer Father Multiple myeloma Social History Housing: House Alcohol intake: never Patient Tobacco Use Status: Current everyday Tobacco user Tobacco use type: Cigarette Cigarettes Per Day: 15 Years Smoked: onset 15yo, 1/2-3/4ppd x 42yrsm 25pyh) e-Cigarette/Vaping Use: Never Used Second Hand Smoke Exposure: No service: No Current occupational status: retired 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 Cognitive needs: No Hearing needs: No Vision needs: No Review of Systems Const Denies weakness ENT Denies dizziness Card Denies chest pain, Denies chest pain with activity, Denies syncope, Denies rapid heart rate, Denies pedal edema, Denies edema, Denies leg edema, Denies lightheadedness, Denies palpitations, Denies dyspnea, Denies dyspnea on exertion and Denies orthopnea Resp Denies cough, Denies dyspnea and Denies dyspnea on exertion GI Denies hematochezia and Denies change in stool character Musc Denies abnormal gait, Denies muscle cramps, Denies muscle weakness, Denies numbness, Denies radiating pain into limb and Denies tingling Neuro Denies abnormal gait, Denies dizziness, Denies syncope, Denies numbness, Denies tingling and Denies weakness Endo Denies palpitations Physical Exam Vital Signs: Last Vital Signs Pulse 97 07/31/23 13:07 BP 116/86 07/31/23 13:07 BMI result Body Mass Index 26.6 Const General: comfortable and no acute distress Orientation/consciousness: patient oriented x3 HEENT Other: Unremarkable Head: Yes normal to inspection Neck Neck: Yes normal visual inspection Chest Chest palpation & inspection: normal inspection of the chest Resp Auscultation: clear to auscultation bilaterally Cardio Palpation: normal PMI Heart sounds: S1 normal heart sound present, S2 normal heart sound present, no gallops, no murmurs and no rubs GI Palpation (GI): Soft to palpation Back/Spine/Pelvis Other: unremarkable Skin General skin exam: no rashes or lesions noted Neuro General: patient oriented x3 Extrem General: Yes normal to inspection Psych Mental Status: mental status grossly normal Assessment & Plan Assessment & Plan (1) Precordial chest pain: Code(s): R07.2 - Precordial pain (2) Smoker: Code(s): F17.200 - Nicotine dependence, unspecified, uncomplicated Plan In the recent echocardiogram, LVEF 55-60%; basal inferior/mid inferoseptal and basal anteroseptal segments thought to be hypokinetic. Ascending aortic size 4 cm. In the coronary CTA from 08/2021, thought to have small calcification at the origin of LAD causing no stenosis and small mixed plaque of the proximal RCA but no significant stenosis. Due to findings of wall motion abnormalities, we will repeat his coronary CTA considering the fact that he has a heavy smoking history. With regard to the question of aortic aneurysm, not of any significant size this time. However, with smoking history potential for enlargement in the future. Again, due to heavy smoking history, will need to screen abdominal aorta for any aneurysm and also the carotids for any significant stenosis. Needs to stop smoking completely. Will follow-up with the above results. Discussed with siblings who came for appointment. Orders: Orders CT Cardiac Coronary Angio Today I25.10 - Atherosclerotic heart disease of [place] coronary artery without angina pectoris US abdominal aortic aneurysm Today I71.40 - Abdominal aortic aneurysm, without rupture, unspecified US carotid duplex BI Today I65.23 - Occlusion and stenosis of bilateral carotid arteries Coding Level of Care Code Est Pt Level 4 (06414) Diagnoses Precordial chest pain R07.2 Smoker F17.200
[2023-07-31 13:07] VITALS: BP 116/86; PULSE 97; BMI 26.6
== END 2023-07-31 13:42 | disposition home or self-care (01) ==
PROVIDERS: PCP Internal Medicine; Visit Provider Internal Medicine
DX: R07.2 Precordial pain (principal); F17.200 Nicotine dependence, unspecified, uncomplicated
CPT/HCPCS: 93010; 99214

== ENCOUNTER → 2023-07-31 13:02 | Outpatient (BNVA) | payer OTHER, SELFPAY | PROVIDERS: PCP Internal Medicine; Visit Provider Internal Medicine | DX: R07.2 Precordial pain (principal); F17.210 Nicotine dependence, cigarettes, uncomplicated | CPT/HCPCS: 93005 ==

== ENCOUNTER 2023-10-28 12:33 | Outpatient (REF) | payer OTHER, SELFPAY ==
[2023-10-28 16:05] LABS: PSA,Total (Free>4and<10) 5.46 ng/mL (0.00-4.00)
[2023-10-30 13:08] LABS: Free Prostate Spec Ag 0.9 ng/mL; Percent Free Prostate Spec Ag 17 % (calc) (>25); Prostate Specific Ag Total 5.3 ng/mL (< OR = 4.0)
== END 2023-10-28 12:34 | disposition home or self-care (01) ==
LOC: HO.LAB 12:33
PROVIDERS: PCP Internal Medicine; Visit Provider Internal Medicine
DX: R97.20 Elevated prostate specific antigen [PSA] (principal); Z12.5 Encounter for screening for malignant neoplasm of prostate
CPT/HCPCS: 36415; 84153; 84154

== ENCOUNTER 2023-10-28 13:08 | Outpatient (AMB) | payer OTHER, SELFPAY ==
[2023-10-28 13:12] VITALS: BP 112/90; PULSE 69; O2SAT 98; BMI 27.3
--- NOTE | 2023-10-28 13:12 | A.OFFPC_ITS ---
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 Patient was referred to Cardiology at that time and advised to follow up with Gastroenterology patient is due for colonoscopy. Patient was seen by Cardiology in July patient was advised to repeat CTA coronary ultrasound of the abdominal aortic aneurysm as well as carotid ultrasound. Patient's last CT scan of the chest to to the smoking history is July 2023 results showing decreased size of the right upper lobe nodule. And that is where the ascending aorta was seen at 4.1 cm. [facility] Medical History (Updated 10/28/23 @ 13:31 by Cammy Penaloza MD) History of COVID-19 Nicotine dependence, cigarettes, uncomplicated Shortness of breath Abnormal stress test Precordial chest pain Degenerative cervical disc Anxiety Herniation of left side of L4-L5 intervertebral disc Surgical History History of esophagogastroduodenoscopy (EGD) History of colonoscopy Complete rotator cuff tear of left shoulder Family History Brother Prostate cancer Testicular cancer Renal cancer Ascending aorta dilatation Mother Ovarian cancer Father Multiple myeloma Social History Housing: House Alcohol intake: never Patient Tobacco Use Status: Current everyday Tobacco user Tobacco use type: Cigarette Cigarettes Per Day: 15 Years Smoked: onset 15yo, 1/2-3/4ppd x 42yrsm 25pyh) e-Cigarette/Vaping Use: Never Used Second Hand Smoke Exposure: No service: No Current occupational status: retired 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 How often do you have a drink containing alcohol?: Never Total Score: 0 CATALINO-7 AMB Questionnaire CATALINO-7 Date CATALINO - 7 assessed: 07/22/23 Source: Developed by Drs. Inocencio Valle, Nupur Cooper, Kirt Fuller and colleagues, with an educational jameson from [employer]. Physical exam (Primary Care) Vital Signs: Last Vital Signs Pulse 69 10/28/23 13:12 BP 112/90 H 10/28/23 13:12 Pulse Ox 98 10/28/23 13:12 Oxygen Delivery Method Room Air 10/28/23 13:12 BMI result Body Mass Index 27.3 Tobacco/Smoking Status: Tobacco use Status Tobacco use date assessed 07/22/23 10/28/23 13:12 Patient Tobacco Use Status Current everyday Tobacco 10/28/23 13:12 Tobacco use type Cigarette 10/28/23 13:12 e-Cigarette/Vaping Use Never Used 10/28/23 13:12 Thrive Assessment: Date of Thrive Assessment Date Thrive assessed 07/22/23 10/28/23 13:12 Const General: alert; No acute distress Eyes Conjunctivae: conjunctivae normal Resp Auscultation: clear to auscultation bilaterally Cardio Rate: regular rate Rhythm: regular rhythm GI Inspection: Yes normal to inspection Extrem General: Yes normal to inspection and No edema Assessment and Plan Assessment & Plan (1) Nicotine dependence, cigarettes, uncomplicated: Comment: (Current smoker - onset 15yo, 1/2-3/4ppd x 42yrsm 25pyh) CT scan July 2023 Code(s): F17.210 - Nicotine dependence, cigarettes, uncomplicated Plan: CT scan up-to-date with lung cancer screening. Presently stopped smoking 08/2023 and on patch (2) Ascending aorta dilatation: Comment: (mid ascending aorta measured 3.8cm on 09/07/2021 chest CTA) May [address] scan 4.1 cm Code(s): I77.810 - Thoracic aortic ectasia Plan: Advised to get an ultrasound of the abdomen (3) Asthma: Code(s): J45.909 - Unspecified asthma, uncomplicated Qualifiers: Asthma complication type: uncomplicated Asthma persistence: int ermittent Asthma severity: mild Qualified Code(s): J45.20 - Mild intermittent asthma, uncomplicated Plan: Patient advised to stop smoking! Continue with the inhalers. not using the controller and doing good (4) GERD (gastroesophageal reflux disease): Code(s): K21.9 - Gastro-esophageal reflux disease without esophagitis Qualifiers: Esophagitis presence: without esophagitis Qualified Code(s): K21.9 - Gastro-esophageal reflux disease without esophagitis Plan: Avoid the foods that causes that usually spicy foods, tomato products, juices, coffee, soda and foods that your sensitive to. After eating do not lie down, allow 3-4 hours before in lie down. And keep the head of bed above 30 degrees to avoid the acid from going up. Patient is strongly advised to stop smoking (5) Generalized anxiety disorder: Comment: declined 05/2021 Code(s): F41.1 - Generalized anxiety disorder Plan: Continue with present medication (6) Abnormal echocardiogram: Comment: 05/2023The left ventricular systolic function is normal. The visually estimated ejection fraction is between 55-60%. - The basal inferior, mid inferoseptal, and basal anteroseptal segments are hypokinetic. - No obvious valvular pathology seen on this study. - There is mild dilatation of the ascending aorta measuring 4.00 cm. Code(s): R93.1 - Abnormal findings on diagnostic imaging of heart and coronary circulation Plan: Patient is being followed up by Cardiology and has ordered for ultrasounds, CTA as well as carotid ultrasound. Medications: Refilled lorazepam 1 mg PO BID 60 tabs 2RF 30 days F41.9 - Anxiety disorder, unspecified albuterol sulfate 90 mcg/actuation (ProAir HFA) 2 puffs inhalation Q6H PRN 8.5 grams 0RF shortness of breath or wheezing J45.20 - Mild intermittent asthma, uncomplicated Discontinued beclomethasone dipropionate 80 mcg/actuation (Qvar RediHaler) administer with spacer Discontinued Reason: Patient Completed Course 1 inh inhalation Q12H 10.6 grams 3RF J45.20 - Mild intermittent asthma, uncomplicated sertraline Discontinued Reason: Patient Refused 25 mg PO DAILY 30 tabs 3RF F41.1 - Generalized anxiety disorder Coding Level of Care Code Est Pt Level 4 (66028) Diagnoses Nicotine dependence, cigarettes, uncomplicated F17.210 Ascending aorta dilatation I77.810 Mild intermittent asthma without complication J45.20 Asthma complication type: uncomplicated Asthma persistence: intermittent Asthma severity: mild Gastroesophageal reflux disease without esophagitis K21.9 Esophagitis presence: without esophagitis Generalized anxiety disorder F41.1 Abnormal echocardiogram R93.1
== END 2023-10-28 13:46 | disposition home or self-care (01) ==
PROVIDERS: PCP Internal Medicine; Visit Provider Internal Medicine
DX: F17.210 Nicotine dependence, cigarettes, uncomplicated (principal); I77.810 Thoracic aortic ectasia; J45.20 Mild intermittent asthma, uncomplicated; K21.9 Gastro-esophageal reflux disease without esophagitis; F41.1 Generalized anxiety disorder; R93.1 Abnormal findings on diagnostic imaging of heart and coronary circulation
CPT/HCPCS: 99214

== ENCOUNTER 2024-01-13 09:28 | Outpatient (REF) | payer BC, SELFPAY ==
--- NOTE | ~2024-01-13 | US_ITS ---
EXAMINATION: US RETROPERITONEAL LIMITED (AORTA) CLINICAL INFORMATION: Ascending aorta dilated, atherosclerosis. COMPARISON: PET/CT dated 03/26/2023 TECHNIQUE: Simms-scale, color Doppler and spectral Doppler evaluation of the abdominal aorta. FINDINGS: Limited evaluation of the proximal and mid aorta due to overlying bowel gas. Mild atherosclerosis of the abdominal aorta without significant stenosis or aneurysmal dilation. The measurements of the aorta in maximum AP and transverse dimensions respectively are as follows: Proximal: 2.9 x 2.4 cm. Mid: 2.1 x 2.0 cm. Distal: 1.9 x 1.8 cm. PSV: 64.4 cm/s. The measurements of the common iliac arteries in maximum AP and TRV dimensions are as follows: Right Common Iliac Artery: 1.3 x 1.5 cm. Left Common Iliac Artery: 1.2 x 1.3 cm. US/US aorta IMPRESSION: Mild atherosclerosis of the abdominal aorta without evidence of aneurysm.
--- NOTE | ~2024-01-13 | US_ITS ---
EXAMINATION: US EXTRACRANIAL CAROTID DUPLEX, BILATERAL CLINICAL INFORMATION: Carotid stenosis COMPARISON: None available. TECHNIQUE: Real-time ultrasound and Doppler techniques (integrating B-mode 2-D vascular images, Doppler spectral analysis and color-flow Doppler imaging) were utilized to interrogate the extracranial carotid arteries, the vertebral arteries and proximal subclavian arteries bilaterally. The degree of stenosis is determined by criteria similar to NASCET. FINDINGS: Right Side: 1. There is mild atherosclerotic plaque seen in the bifurcation/proximal ICA region. 2. The common carotid artery PSV proximally is 68.5 cm/s and distally 58.0 cm/s. 3. The proximal internal carotid artery velocities are 36.9 cm/s systolic and 13.2 cm/s diastolic. 4. The proximal external carotid artery PSV is 63.7 cm/s. 5. The vertebral artery shows antegrade flow. 6. The subclavian artery waveforms are normal. Left Side: 1. There is mild atherosclerotic plaque seen in the bifurcation/proximal ICA region. 2. The common carotid artery PSV proximally is 78.9 cm/s and distally 73.9 cm/s. 3. The proximal internal carotid artery velocities are 76.8 cm/s systolic and 36.8 cm/s diastolic. 4. The proximal external carotid artery PSV is 70.8 cm/s. 5. The vertebral artery shows antegrade flow. 6. The subclavian artery waveforms are normal. Multiple prominent lymph nodes are seen in the bilateral cervical chains, most of which demonstrated normal sonographic appearance. There is one lymph node in the left neck which is slightly more hypoechoic and rounded measuring 1.8 x 0.7 x 1.3 cm US/US carotid duplex BI IMPRESSION: 1. RIGHT: Minimal, non-hemodynamically significant stenosis of the proximal right internal carotid artery corresponding to a 0-49% stenosis by velocity criteria. 2. LEFT: Minimal, non-hemodynamically significant stenosis of the proximal left internal carotid artery corresponding to a 0-49% stenosis by velocity criteria. 3. Bilateral cervical lymphadenopathy
== END 2024-01-13 09:29 | disposition home or self-care (01) ==
LOC: HO.US 09:28
PROVIDERS: PCP Internal Medicine; Visit Provider Internal Medicine
DX: I65.23 Occlusion and stenosis of bilateral carotid arteries (principal); I71.40 Abdominal aortic aneurysm, without rupture, unspecified
CPT/HCPCS: 76775; 93880

== ENCOUNTER 2024-01-27 14:32 | Outpatient (AMB) | payer BC, SELFPAY ==
[2024-01-27 14:34] VITALS: BP 110/58; PULSE 75; BMI 26.3
--- NOTE | 2024-01-27 14:34 | A.OFFVIS_ITS ---
Vital Signs 01/27/24 14:34 Height 6 ft 2 in Weight 205 lb 0.478 oz BMI 26.3 BP 110/58 L Blood Pressure Location Lt brachial Position Sitting Pulse 75 Pulse Source Pulse Oximeter Intake Visit Reasons: Follow up From Tests Allergies codeine [CODEINE] Allergy (Unknown, Verified 10/28/23 13:13) LIGHT HEADED , nausea erythromycin base [ERYTHROMYCIN BASE] Allergy (Unknown, Verified 10/28/23 13:13) RASH Medication List - Last Reconciled 01/27/24 by Nigel Stevenson MD albuterol sulfate 90 mcg/actuation (ProAir HFA) 2 puffs inhalation Q6H PRN lorazepam 2 mg PO BID nicotine 1 patch transdermal DAILY omeprazole 40 mg PO DAILY quetiapine 150 mg (3 x 50 mg) PO BEDTIME 90 days HPI Comments Details: Cristino returns for follow-up. In 2020, he was seen for evaluation of chest pain. At that time, he underwent exercise stress echocardiogram as well as coronary CTA. He is a heavy smoker and was smoking as much as 40 cigarettes a day. Somewhat lower recently. He underwent recent echocardiogram which raised a question of wall motion abnormalities and hence he was referred back. Subsequently, he underwent another coronary CTA. Overall, he feels good from cardiac and does not really have any clear-cut symptoms. [facility] Medical History (Updated 01/14/24 @ 13:03 by Nigel Stevenson MD) History of COVID-19 Nicotine dependence, cigarettes, uncomplicated Shortness of breath Abnormal stress test Precordial chest pain Degenerative cervical disc Anxiety Herniation of left side of L4-L5 intervertebral disc Surgical History History of esophagogastroduodenoscopy (EGD) History of colonoscopy Complete rotator cuff tear of left shoulder Family History Brother Prostate cancer Testicular cancer Renal cancer Ascending aorta dilatation Mother Ovarian cancer Father Multiple myeloma Social History Housing: House Alcohol intake: never Patient Tobacco Use Status: Current everyday Tobacco user Tobacco use type: Cigarette Cigarettes Per Day: 15 Years Smoked: onset 15yo, 1/2-3/4ppd x 42yrsm 25pyh) e-Cigarette/Vaping Use: Never Used Second Hand Smoke Exposure: No service: No Current occupational status: retired 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 Cognitive needs: No Hearing needs: No Vision needs: No Review of Systems Const Denies weakness ENT Denies dizziness Card Denies chest pain, Denies chest pain with activity, Denies syncope, Denies rapid heart rate, Denies pedal edema, Denies edema, Denies leg edema, Denies lightheadedness, Denies palpitations, Denies dyspnea, Denies dyspnea on exertion and Denies orthopnea Resp Denies cough, Denies dyspnea and Denies dyspnea on exertion GI Denies hematochezia and Denies change in stool character Musc Denies abnormal gait, Denies muscle cramps, Denies muscle weakness, Denies numbness, Denies radiating pain into limb and Denies tingling Neuro Denies abnormal gait, Denies dizziness, Denies syncope, Denies numbness, Denies tingling and Denies weakness Endo Denies palpitations Physical Exam Vital Signs: Last Vital Signs Pulse 75 01/27/24 14:34 BP 110/58 L 01/27/24 14:34 BMI result Body Mass Index 26.3 Const General: comfortable and no acute distress Orientation/consciousness: patient oriented x3 HEENT Other: Unremarkable Head: Yes normal to inspection Neck Neck: Yes normal visual inspection Chest Chest palpation & inspection: normal inspection of the chest Resp Auscultation: clear to auscultation bilaterally Cardio Palpation: normal PMI Heart sounds: S1 normal heart sound present, S2 normal heart sound present, no gallops, no murmurs and no rubs GI Palpation (GI): Soft to palpation Back/Spine/Pelvis Other: unremarkable Skin General skin exam: no rashes or lesions noted Neuro General: patient oriented x3 Extrem General: Yes normal to inspection Psych Mental Status: mental status grossly normal Assessment & Plan Assessment & Plan (1) Precordial chest pain: Code(s): R07.2 - Precordial pain Category: Medical (2) Smoker: Code(s): F17.200 - Nicotine dependence, unspecified, uncomplicated Category: Social Hx Plan Cardiac studies reviewed. In the recent echocardiogram, LVEF 55-60%. There is a question of wall motion abnormalities but on reviewing them again could be all artifactual. Ascending aortic size 4 cm. In the coronary CTA, no hemodynamically significant stenosis. Scattered plaque with less than 25% stenosis. Small PFO with [id number] flow. Thoracic aortic size described as 3.6 cm. The carotid ultrasound, minimal stenosis. Otherwise, he has finding of cervical lymphadenopathy. Screening ultrasound for abdominal aortic aneurysm is still to be reported. With regard to coronary atherosclerosis, minimal to mild at this time. Main recommendation for that would be to stop smoking which we discussed. We can add statins to his regimen. Recheck lipids and LFTs in 3 months. With regard to the wall motion abnormalities, likely all artifactual no specific workup for that. With regard to the ascending aortic aneurysm, size is small at about 4 cm. We can check that in about 6 months' time. They can also be visualized in any CT scans he might be having for other reasons. Will await the abdominal ultrasound finding for any aneurysm. For the cervical lymphadenopathy, refer to hematology. Total time spent including review of data, counseling, documentation, coordination of care-31 minutes. Orders: Orders Liver Panel 3 Months Nigel Stevenson MD I25.10 - Atherosclerotic heart disease of [place] coronary artery without angina pectoris CA echo transthoracic complete 6 Months Nigel Stevenson MD I77.810 - Thoracic aortic ectasia Lipid Panel 3 Months Nigel Stevenson MD E78.5 - Hyperlipidemia, unspecified Medications: New atorvastatin 20 mg PO QPM 90 tabs 3RF Nigel Stevenson MD Changed From lorazepam 1 mg PO BID 30 days 60 tabs 2RF F41.9 - Anxiety disorder, unspecified To lorazepam 2 mg PO BID F41.9 - Anxiety disorder, unspecified Carolynver Darius Penaloza MD Coding Level of Care Code Est Pt Level 4 (57069) Diagnoses Precordial chest pain R07.2 Smoker F17.200
== END 2024-01-27 15:03 | disposition home or self-care (01) ==
PROVIDERS: PCP Internal Medicine; Visit Provider Internal Medicine
DX: R07.2 Precordial pain (principal); F17.200 Nicotine dependence, unspecified, uncomplicated
CPT/HCPCS: 99214

== ENCOUNTER → 2024-01-27 14:32 | Outpatient (BNVA) | payer BC, SELFPAY | PROVIDERS: PCP Internal Medicine; Visit Provider Internal Medicine ==

== ENCOUNTER 2024-03-10 14:42 | Outpatient (AMB) | payer BC, SELFPAY ==
[2024-03-10 14:53] VITALS: BP 118/80; PULSE 56; O2SAT 98; BMI 26.2
--- NOTE | 2024-03-10 14:53 | A.OFFPC_ITS ---
Vital Signs 03/10/24 14:53 Height 6 ft 2 in Weight 204 lb BMI 26.2 BP 118/80 Blood Pressure Location Lt brachial Position Sitting Pulse 56 Pulse Source Pulse Oximeter Pulse Oximetry (%) 98 Oxygen Delivery Method Room Air Intake Visit Reasons: CATALINO, smoker, Allergies codeine [CODEINE] Allergy (Unknown, Verified 10/28/23 13:13) LIGHT HEADED , nausea erythromycin base [ERYTHROMYCIN BASE] Allergy (Unknown, Verified 10/28/23 13:13) RASH Tobacco use date assessed: 07/22/23 Dental Screening Dental Screen Date: 07/22/23 HPI CATALINO, smoker, HPI Details 58-year-old male smoker with ascending a alissa dilatation asthma GERD generalized anxiety disorder coming in for follow-up. Last seen in 10/19/2023. Patient is due for colonoscopy. Review of the notes in December was seen by Cardio logy exercise stress echocardiogram as well as coronary CTA echocardiogram 55- 60% CTA no hemodynamically significant stenosis. Scattered plaque with less than 25% stenosis small PFO left to right flow thoracic aorta size 3.6 cm. Screening ultrasound for abdominal aortic aneurysm pending. So minimal coronary atherosclerosis. Advised to stop smoking check cholesterol. Ultrasound of the carotids done in December 2023. RIGHT: Minimal, non-hemodynamically significant stenosis of the proximal right internal carotid artery corresponding to a 0-49% stenosis by velocity criteria. 2. LEFT: Minimal, non-hemodynamically si gnificant stenosis of the proximal left internal carotid artery corresponding to a 0-49% stenosis by velocity criteria. 3. Bilateral cervical lymphadenopathy Abdominal ultrasound January 2024Mild atherosclerosis of the abdominal aorta without evidence of aneurysm. [facility] Medical History (Updated 03/10/24 @ 15:21 by Cammy Penaloza MD) Blood pressure elevated without history of HTN Abnormal echocardiogram History of COVID-19 Nicotine dependence, cigarettes, uncomplicated Shortness of breath Abnormal stress test Precordial chest pain Degenerative cervical disc Anxiety Herniation of left side of L4-L5 intervertebral disc Surgical History History of esophagogastroduodenoscopy (EGD) History of colonoscopy Complete rotator cuff tear of left shoulder Family History Brother Prostate cancer Testicular cancer Renal cancer Ascending aorta dilatation Mother Ovarian cancer Father Multiple myeloma Social History Housing: House Alcohol intake: never Patient Tobacco Use Status: Current everyday Tobacco user Tobacco use type: Cigarette Cigarettes Per Day: 15 Years Smoked: onset 15yo, 1/2-3/4ppd x 42yrsm 25pyh) e-Cigarette/Vaping Use: Never Used Second Hand Smoke Exposure: No service: No Current occupational status: retired 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 How often do you have a drink containing alcohol?: Never 3. How often do you have six or more drinks on one occasion?: Never Total Score: 0 CATALINO-7 AMB Questionnaire CATALINO-7 Date CATALINO - 7 assessed: 07/22/23 Source: Developed by Drs. Inocencio Valle, Nupur Cooper, Kirt Fuller and colleagues, with an educational jameson from [employer]. Physical exam (Primary Care) Vital Signs: Last Vital Signs Pulse 56 03/10/24 14:53 Pulse Ox 98 03/10/24 14:53 Oxygen Delivery Method Room Air 03/10/24 14:53 BMI result Body Mass Index 26.2 Tobacco/Smoking Status: Tobacco use Status Tobacco use date assessed 07/22/23 03/10/24 14:58 Patient Tobacco Use Status Current everyday Tobacco 03/10/24 14:58 Tobacco use type Cigarette 03/10/24 14:58 e-Cigarette/Vaping Use Never Used 03/10/24 14:58 Thrive Assessment: Date of Thrive Assessment Date Thrive assessed 07/22/23 03/10/24 14:58 Const General: alert; No acute distress Eyes Conjunctivae: conjunctivae normal Resp Auscultation: clear to auscultation bilaterally Cardio Rate: regular rate Rhythm: regular rhythm GI Inspection: Yes normal to inspection Extrem General: Yes normal to inspection and No edema Assessment and Plan Assessment & Plan (1) Nicotine dependence, cigarettes, uncomplicated: Comment: (Current smoker - onset 15yo, 1/2-3/4ppd x 42yrsm 25pyh) CT scan July 2023 Code(s): F17.210 - Nicotine dependence, cigarettes, uncomplicated Plan: . 8-10 a dayPatient is strongly advised to stop smoking (2) Ascending aorta dilatation: Comment: (mid ascending aorta measured 3.8cm on 09/07/2021 chest CTA) May [address] scan 4.1 cm Code(s): I77.810 - Thoracic aortic ectasia Plan: Advised to control the blood pressure and cholesterol (3) Asthma: Code(s): J45.909 - Unspecified asthma, uncomplicated Qualifiers: Asthma severity: mild Asthma persistence: intermittent Asthma comp lication type: uncomplicated Qualified Code(s): J45.20 - Mild intermittent asthma, uncomplicated Plan: Stop smoking! Continue with albuterol inhaler (4) GERD (gastroesophageal reflux disease): Code(s): K21.9 - Gastro-esophageal reflux disease without esophagitis Qualifiers: Esophagitis presence: without esophagitis Qualified Code(s): K21.9 - Gastro-esophageal reflux disease without esophagitis Plan: Avoid the foods that causes that usually spicy foods, tomato products, juices, c offee, soda and foods that your sensitive to. After eating do not lie down, allow 3-4 hours before in lie down. And keep the head of bed above 30 degrees to avoid the acid from going up. (5) Generalized anxiety disorder: Comment: declined 05/2021 Code(s): F41.1 - Generalized anxiety disorder Plan: Continue with therapy. (6) Colon cancer screening: Code(s): Z12.11 - Encounter for screening for malignant neoplasm of colon Medications: Refilled quetiapine 150 mg (3 x 50 mg) PO BEDTIME 90 days 270 tabs 0RF F41.1 - Generalized anxiety disorder Coding Level of Care Code Est Pt Level 4 (90936) Diagnoses Nicotine dependence, cigarettes, uncomplicated F17.210 Ascending aorta dilatation I77.810 Mild intermittent asthma without complication J45.20 Asthma severity: mild Asthma persistence: intermittent Asthma complication type: uncomplicated Gastroesophageal reflux disease without esophagitis K21.9 Esophagitis presence: without esophagitis Generalized anxiety disorder F41.1 Colon cancer screening Z12.11
== END 2024-03-10 15:25 | disposition home or self-care (01) ==
PROVIDERS: PCP Internal Medicine; Visit Provider Internal Medicine
DX: F17.210 Nicotine dependence, cigarettes, uncomplicated (principal); I77.810 Thoracic aortic ectasia; J45.20 Mild intermittent asthma, uncomplicated; K21.9 Gastro-esophageal reflux disease without esophagitis; F41.1 Generalized anxiety disorder; Z12.11 Encounter for screening for malignant neoplasm of colon
CPT/HCPCS: 99214

== ENCOUNTER → 2024-04-14 15:00 | Outpatient (BNV) | payer BC, SELFPAY | PROVIDERS: PCP Internal Medicine; Referring Provider Internal Medicine; Visit Provider Internal Medicine | DX: R59.0 Localized enlarged lymph nodes (principal) | CPT/HCPCS: 99204 ==

== ENCOUNTER 2024-05-06 09:25 | Outpatient (AMB) | payer BC, SELFPAY ==
--- NOTE | 2024-05-06 09:29 | MHC.OFFVIS ---
Intake Visit Reasons: Elevated PSA/Frequency(Fam HX Prostate Ca) Intake Note: Patient is present for ELEVATED PSA/FREQUENCY (Fam HX Prostate Ca) Urology Medication:none Antibiotic Allergy:erythromycin Blood Thinner:none Soap Slabber Required: No Allergies codeine [CODEINE] Allergy (Unknown, Verified 05/06/24 09:31) LIGHT HEADED , nausea erythromycin base [ERYTHROMYCIN BASE] Allergy (Unknown, Verified 05/06/24 09:31) RASH HPI Comments Details: Cristino is a pleasant male. He is a patient of Dr. Penaloza. He is seen for the following urologic conditions - elevated PSA SHAYY normal Right epididymal cyst 1 brother had prostate cancer, other recently had biopsy Given the family history would suggest biopsy Elevated PSA PSA - 10/22 PSA 5.3, free% 17 Calculated risk 6% high-grade Family history of prostate cancer [facility] Medical History (Updated 04/14/24 @ 15:25 by Janel Beck MD) Blood pressure elevated without history of HTN Abnormal echocardiogram History of COVID-19 Nicotine dependence, cigarettes, uncomplicated Shortness of breath Abnormal stress test Precordial chest pain Degenerative cervical disc Anxiety Herniation of left side of L4-L5 intervertebral disc Surgical History (Updated 04/14/24 @ 15:25 by Janel Beck MD) History of esophagogastroduodenoscopy (EGD) History of colonoscopy Complete rotator cuff tear of left shoulder Family History Brother Prostate cancer Testicular cancer Renal cancer Ascending aorta dilatation Mother Ovarian cancer Father Multiple myeloma Social History (Updated 04/14/24 @ 15:07 by Nahid Pérez) Household Members: Family Housing: House Alcohol intake: never Patient Tobacco Use Status: Current everyday Tobacco user Tobacco use type: Cigarette Years Smoked: onset 15yo, 1/2-3/4ppd x 42yrsm 25pyh) e-Cigarette/Vaping Use: Never Used Second Hand Smoke Exposure: No Substance Use Type: Marijuana service: No Current occupational status: retired 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 Gender identity: Male Cognitive needs: No Hearing needs: No Vision needs: No Review of Systems Const Denies chills and Denies fever(s) Card Reports no additional complaints and Denies syncope Resp Denies cough GI Denies abdominal pain and Denies heartburn Reports as per HPI and Denies change in libido Neuro Denies syncope Psych Denies change in libido Endo Denies change in libido Physical Exam Const General: cooperative, healthy appearing, comfortable and no acute distress Orientation/consciousness: patient oriented x3 HEENT Face and sinus: Yes normal facial exam Mouth: moist mucous membranes Neck Neck: Yes normal visual inspection, Yes full ROM and Yes trachea midline Chest Chest palpation & inspection: normal inspection of the chest Resp Effort & Inspection: normal respiratory effort, able to speak in complete sentences and no respiratory distress GI Inspection: Yes normal to inspection Rectal Exam - Male: Yes normal sphincter tone and Yes prostate normal Male General Exam: Yes normal external exam Penis: normal penis and circumcised Meatus: meatus normal Scrotum: scrotum normal Testes: Testes normal Back/Spine/Pelvis Cervical Spine: normal cervical lordosis Thoracic/Lumbar Spine: thoracic and lumbar spine normal to inspection Skin General skin exam: no rashes or lesions noted Neuro General: patient oriented x3, gait normal, tone normal and moves all extremities Extrem General: Yes normal to inspection and Yes capillary refill normal Results AMB Urinalysis, Automated UA Leukoctes 0 Prasanna/uL Last Edit by EMMA Lyles on 05/06/24 09:41 UA Nitrite Negative Last Edit by EMMA Lyles on 05/06/24 09:41 UA Urobilinogen 0.2 mg/dL Last Edit by EMMA Lyles on 05/06/24 09:41 UA Protein 0 mg/dL Last Edit by EMMA Lyles on 05/06/24 09:41 UA pH 6.5 Last Edit by EMMA Lyles on 05/06/24 09:41 UA Blood 0 Iglesia/uL Last Edit by EMMA Lyles on 05/06/24 09:41 UA Specific [place] 1.015 Last Edit by EMMA Lyles on 05/06/24 09:41 UA Ketone Negative Last Edit by EMMA Lyles on 05/06/24 09:41 UA Bilirubin 0 mg/dL Last Edit by EMMA Lyles on 05/06/24 09:41 UA Glucose 0 mg/dL Last Edit by EMMA Lyles on 05/06/24 09:41 Results Reviewed Results Reviewed: Laboratory Last Values Urine pH (Auto) 6.5 05/06/24 09:41 Specific [place] (Auto) 1.015 05/06/24 09:41 Urine Protein (Auto) 0 mg/dL 05/06/24 09:41 Glucose (UA)(Auto) 0 mg/dL 05/06/24 09:41 Urine Ketones (Auto) Negative 05/06/24 09:41 Urine Blood (Auto) 0 Iglesia/uL 05/06/24 09:41 Urine Nitrite (Auto) Negative 05/06/24 09:41 Urine Bilirubin (Auto) 0 mg/dL 05/06/24 09:41 Urine Urobilinogen (Auto) 0.2 mg/dL 05/06/24 09:41 Leukocyte Esterase (Auto) 0 Prasanna/uL 05/06/24 09:41 Assessment & Plan Assessment & Plan (1) Abnormal PSA: Code(s): R97.20 - Elevated prostate specific antigen [PSA] Category: Medical Plan Risks and benefits regarding trans rectal ultrasound with prostate biopsy were discussed. Options of continued surveillance, no treatment and biopsy were offered. The risks include but are not limited to, urinary tract infection, sepsis, difficulty urinating, bleeding into the rectum or bladder that requires intervention and transfusion,and failure to diagnose prostate cancer. The patient understands the options and the risks involved. They wish to proceed. Printed information was provided to ensure he remains off anticoagulation for the appropriate length of time. He may require cardiology or PCP clearance. An antibiotic will be administered prior to, and following the procedure Orders: Orders AMB Urinalysis Automated Today Z13.9 - Encounter for screening, unspecified Patient Instructions: Imaging studies, laboratory and physical exam results were discussed and reviewed in detail. No major barriers to patient understanding were identified. An opportunity to ask questions regarding the treatment plan was provided. All questions were answered. The patient expressed understanding and agreement with the above treatment plan. The patient is aware they should contact our office by phone for worsening of their current condition or the appearance of new urologic symptoms. Compliance is encouraged with any medications and followup testing that is ordered. It is a privilege to participate in the urologic care of your patient. If you have any questions or concerns regarding treatment for the above conditions, or other urologic issues, please do not hesitate to contact me. The office telephone contact is [phone]. This note is constructed using voice recognition software. While every effort has been made to ensure accuracy furniture delivery driver errors may have been included. Yours sincerely, Dr Timothy Marshall MD, [facility] - Urology Providers of Expert, Compassionate Care for the Genitourinary System Coding Level of Care Code New Pt Level 4 (41984) Diagnoses Abnormal PSA R97.20
== END 2024-05-06 10:08 | disposition home or self-care (01) ==
LOC: HO.HUSH 09:25
PROVIDERS: PCP Internal Medicine; Visit Provider Urology
DX: R97.20 Elevated prostate specific antigen [PSA] (principal); Z13.9 Encounter for screening, unspecified
CPT/HCPCS: 99204

== ENCOUNTER → 2024-05-06 09:25 | Outpatient (BNVA) | payer BC, SELFPAY | PROVIDERS: PCP Internal Medicine; Visit Provider Urology | DX: R97.20 Elevated prostate specific antigen [PSA] (principal); R35.0 Frequency of micturition | CPT/HCPCS: 81003 ==

== ENCOUNTER 2024-08-11 14:32 | Outpatient (AMB) | payer BC, SELFPAY ==
--- NOTE | 2024-08-11 15:11 | MHC.PC.OV ---
Vital Signs 08/11/24 15:12 Height 6 ft 2 in Weight 217 lb 2 oz BMI 27.9 BP 110/60 Blood Pressure Location Lt brachial Position Sitting Pulse 56 Pulse Source Pulse Oximeter Temp 97.1 F Temp Source Skin Pulse Oximetry (%) 98 Oxygen Delivery Method Room Air Intake Visit Reasons: medication follow up Intake Note: Patient is here to follow up on med review. Chronometer Assembler Required: No Auto Service Writer: Not Required per policy Accompanied by: Self / Same As Patient Allergies codeine [CODEINE] Allergy (Unknown, Verified 08/11/24 15:12) LIGHT HEADED , nausea erythromycin base [ERYTHROMYCIN BASE] Allergy (Unknown, Verified 08/11/24 15:12) RASH Medication List - Last Reconciled 08/11/24 by Rashmi Still PA-C albuterol sulfate 90 mcg/actuation (ProAir HFA) 2 puffs inhalation Q6H PRN atorvastatin 20 mg PO QPM levofloxacin 500 mg PO ONCE 3 days lorazepam 2 mg (2 x 1 mg) PO BID PRN nicotine 1 patch transdermal DAILY omeprazole 40 mg PO DAILY quetiapine 150 mg (3 x 50 mg) PO BEDTIME 90 days Tobacco use date assessed: 08/11/24 Dental Screening Dental Screen Date: 08/11/24 Did you have a dental visit in the last 12 months?: No Did you have a dental problem in the last 6 months where you did not have access to dental care?: No Was dental information given to patient?: No HPI medication follow up HPI Details 59-year-old male with past medical history of ascending aorta dilation, asthma, GERD, generalized anxiety disorder last seen 03/[address] Penaloza coming in for follow up. In review of the notes, patient was seen by Urology or elevated PSA had biopsy and missed appointment to review results.?Seen by Hematology/Oncology 04/14/2024 for cervical lymphadenopathy ordered for repeat ultrasound and follow up in 3 months. Patient tells us today he is feeling generally well. He has been having increased anxiety since being out of the Seroquel and lorazepam. He continues to smoke cigarettes and is down to half pack a day from 2 packs. No acute concerns today [facility] Medical History Blood pressure elevated without history of HTN Abnormal echocardiogram History of COVID-19 Nicotine dependence, cigarettes, uncomplicated Shortness of breath Abnormal stress test Precordial chest pain Degenerative cervical disc Anxiety Herniation of left side of L4-L5 intervertebral disc Surgical History History of esophagogastroduodenoscopy (EGD) History of colonoscopy Complete rotator cuff tear of left shoulder Family History Brother Prostate cancer Testicular cancer Renal cancer Ascending aorta dilatation Mother Ovarian cancer Father Multiple myeloma Social History Household Members: Family Housing: House Alcohol intake: never Patient Tobacco Use Status: Current everyday Tobacco user Tobacco use type: Cigarette Cigarette Packs Per Day: 0.5 Cigarettes Per Day: 10 Years Smoked: onset 15yo, 1/2-3/4ppd x 42yrsm 25pyh) e-Cigarette/Vaping Use: Never Used Second Hand Smoke Exposure: No Substance Use Type: Marijuana service: No Current occupational status: retired 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 1. Little interest or pleasure in doing things: not at all 2. Feeling down, depressed, or hopeless: not at all 3. Trouble falling or staying asleep, or sleeping too much: not at all 4. Feeling tired or having little energy: not at all 5. Poor appetite or overeating: not at all 6. Feeling bad about yourself - or that you are a failure or have let yourself or your family down: not at all 7. Trouble concentrating on things, such as reading the newspaper or watching television: not at all 8. Moving or speaking so slowly that other people could have noticed. Or the opposite - being so fidgety or restless that you have been moving around a lot more than usual: not at all 9. Thoughts that you would be better off or of hurting yourself in some way: not at all Total score: 0 Depression Screening Interpretation: Negative Depression Screening Done: Yes Source: Developed by Drs. Inocencio Valle, Nupur Cooper, Kirt Fuller and colleagues, with an educational jameson from [employer]. Thrive Questionnaire Date Thrive assessed: 08/11/24 I am a: Patient What is your living situation today?: I have a steady place to live Within the past 12 months, did the food you bought not last and you didn't have the money to get more?: Never true Within the past 12 months, did you worry whether your food would run out before you got money to buy more?: Never true Do you have trouble paying for medicines?: No Do you have trouble getting transportation to medical appointments?: No Do you have trouble paying your heating and electricity bill?: No Do you have trouble taking care of your child, family member or friend?: No Do you have trouble with day-to-day activities such as bathing, preparing meals, shopping, managing finances, etc.?: No Are you currently unemployed and looking for a job?: No Are you interested in more education?: No Please select the resources that you would like help with: None Currently or been in a relationship where the following occur: No concerns reported THRIVE Score: 0 AUDIT C Alcohol Use Questionnaire (AUDIT-C) 1. How often do you have a drink containing alcohol?: Never Total Score: 0 CATALINO-7 AMB Questionnaire CATALINO-7 Date CATALINO - 7 assessed: 08/11/24 Feeling nervous, anxious, or on edge: 3 = Nearly every day Not being able to stop or control worryin = Several days Worrying too much about different things: 1 = Several days Trouble relaxin = More than half the days Being so restless that it is hard to sit still: 2 = More than half the days Becoming easily annoyed or irritable: 2 = More than half the days Feeling afraid as if something awful might happen: 3 = Nearly every day Total CATALINO-7 score (0-4 normal; 5-9 mild; 10-14 moderate; 15-21 severe): 14 Source: Developed by Drs. Inocencio Valle, Nupur Cooper, Kirt Fuller and colleagues, with an educational jameson from [employer]. Review of Systems Const Denies body aches, Denies chills, Denies fever(s) and Denies poor appetite Eyes Reports no additional complaints ENT Reports no additional complaints Card Denies chest pain, Denies lightheadedness and Denies dyspnea Resp Reports cough (Intermittent) and Denies dyspnea GI Reports no additional complaints Reports no additional complaints Musc Reports no additional complaints and Denies abnormal gait Skin/Breast Reports system reviewed and no additional complaints, except as documented Neuro Denies abnormal gait Psych Reports anxiety Physical exam (Primary Care) Vital Signs: Last Vital Signs Temp 97.1 F 08/11/24 15:12 BMI result Body Mass Index 27.9 Tobacco/Smoking Status: Tobacco use Status Tobacco use date assessed 08/11/24 08/11/24 15:14 Patient Tobacco Use Status Current everyday Tobacco 08/11/24 15:17 Tobacco use type Cigarette 08/11/24 15:17 e-Cigarette/Vaping Use Never Used 08/11/24 15:17 Are you ready to quit: No Tobacco cessation counseling provided: Yes Items discussed: Nicotine replacement Relapse Prevention: weight gain after smoking is common and discussed dietary, exercise and/or lifestyle changes Number of minutes spent counselin CPT code: 22821 - 4-10 Minutes PHQ-9: PHQ-9 Score PHQ-9: Total score 0 08/11/24 15:14 Depression Screening Interpretation: Negative Thrive Assessment: Date of Thrive Assessment Date Thrive assessed 08/11/24 08/11/24 15:14 Currently or been in a relationship where the following occur: No concerns reported Const General: cooperative, healthy appearing, comfortable and no acute distress Orientation/consciousness: patient oriented x3 HENMT Head: Yes normocephalic Ears: hearing grossly normal bilaterally General nose exam: Normal external nose present Eyes General: appearance normal, both eyes and all related structures Conjunctivae: conjunctivae normal Neck Neck: Yes full ROM and Yes no lymphadenopathy Resp Effort & Inspection: normal respiratory effort Auscultation: clear to auscultation bilaterally, no crackles, no rales, no rhonchi and no wheezes Cardio Rate: regular rate Rhythm: regular rhythm Skin General skin exam: no rashes or lesions noted Neuro General: patient oriented x3 Gait exam (Neuro): Normal gait present Extrem General: Yes normal to inspection, Yes full ROM and No edema Psych Affect: normal affect Attitude: cooperative Insight: Good insight present (Psych) Judgement: Good judgement present (Psych) Coding Level of Care Code Est Pt Level 3 (63249) Diagnoses Pulmonary nodules R91.8 Nicotine dependence, cigarettes, uncomplicated F17.210 Generalized anxiety disorder F41.1 Gastroesophageal reflux disease without esophagitis K21.9 Esophagitis presence: without esophagitis Mild intermittent asthma without complication J45.20 Asthma severity: mild Asthma persistence: intermittent Asthma complication type: uncomplicated Additional Codes Vital Signs *Quality* - CPT code: 93617 - 4-10 Minutes ([id number]) Assessment & Plan Assessment & Plan (1) Pulmonary nodules: Comment: (9x5cm RUL spiculated nodule, 10x6mm RLL spiculated nodule on 03/08/23 LDCT - plan is for PFTs, PET scan and f/u with Dr. [facility] at [facility]) Code(s): R91.8 - Other nonspecific abnormal finding of lung field Category: Medical Plan: Refer patient back to annual lung cancer screening program advised to follow up at next visit (2) Nicotine dependence, cigarettes, uncomplicated: Comment: (Current smoker - onset 15yo, 1/2-3/4ppd x 42yrsm 25pyh) CT scan July 2023 Code(s): F17.210 - Nicotine dependence, cigarettes, uncomplicated Category: Medical Plan: Smoking cigarettes and the use of tobacco can be harmful. We discussed the importance of stopping and options to aid in smoking cessation. Declines nicotine replacement therapy (3) Generalized anxiety disorder: Comment: declined 05/2021 Code(s): F41.1 - Generalized anxiety disorder Category: Medical Plan: Refilled Seroquel and sent message to Dr. Penaloza to refill lorazepam. (4) GERD (gastroesophageal reflux disease): Code(s): K21.9 - Gastro-esophageal reflux disease without esophagitis Category: Medical Qualifiers: Esophagitis presence: without esophagitis Qualified Code(s): K21.9 - Gastro-esophageal reflux disease without esophagitis Plan: Avoid trigger foods such as citrus, tomato products, soda, caffeine, spicy foods and other foods that may be irritating to your stomach. Avoid laying flat 3-4 hours after eating and elevate the head of the bed 30 degrees to prevent acid from moving into the esophagus. (5) Asthma: Code(s): J45.909 - Unspecified asthma, uncomplicated Category: Medical Qualifiers: Asthma severity: mild Asthma persistence: intermittent Asthma complication type: uncomplicated Qualified Code(s): J45.20 - Mild intermittent asthma, uncomplicated Plan: Asthma currently controlled on present medications. Continue on albuterol as needed. Avoid triggers such as allergies. Plan This note was constructed using voice recognition software. While every effort has been made to ensure accuracy and electrical accessories i assembler, still areas may have been included sometimes these areas may affect the content or meeting of the given symptoms. Total time spent caring for the patient today was twenty minutes. This includes time spent before the visit reviewing the chart, time spent during the visit, and time spent after the visit and documentation. Orders: Referrals Lung Cancer Screening Referral Z72.0 - Tobacco use Medications: Refilled quetiapine 150 mg (3 x 50 mg) PO BEDTIME 90 days 270 tabs 0RF F41.1 - Generalized anxiety disorder lorazepam 2 mg (2 x 1 mg) PO BID PRN 60 tabs 0RF anxiety F41.9 - Anxiety disorder, unspecified
[2024-08-11 15:12] VITALS: BP 110/60; PULSE 56; TEMP 36.2; O2SAT 98; BMI 27.9
== END 2024-08-11 15:42 | disposition home or self-care (01) ==
PROVIDERS: PCP Internal Medicine
DX: R91.8 Other nonspecific abnormal finding of lung field (principal); F17.210 Nicotine dependence, cigarettes, uncomplicated; F41.1 Generalized anxiety disorder; K21.9 Gastro-esophageal reflux disease without esophagitis; J45.20 Mild intermittent asthma, uncomplicated

== ENCOUNTER 2024-10-12 15:21 | Outpatient (AMB) | payer BC, SELFPAY ==
[2024-10-12 15:25] VITALS: BP 128/72; PULSE 72; TEMP 36.1; O2SAT 94; BMI 28.2
--- NOTE | 2024-10-12 15:25 | A.OFFPC_ITS ---
Vital Signs 10/12/24 15:25 Height 6 ft 2 in Weight 219 lb 8 oz BMI 28.2 BP 128/72 Blood Pressure Location Lt brachial Position Sitting Pulse 72 Pulse Source Pulse Oximeter Temp 97.0 F Temp Source Temporal Artery Scan Pulse Oximetry (%) 94 Oxygen Delivery Method Room Air Intake Visit Reasons: tobacco abuse faraz 07/15 Allergies codeine [CODEINE] Allergy (Unknown, Verified 10/12/24 15:27) LIGHT HEADED , nausea erythromycin base [ERYTHROMYCIN BASE] Allergy (Unknown, Verified 10/12/24 15:27) RASH Tobacco use date assessed: 08/11/24 Dental Screening Dental Screen Date: 08/11/24 Did you have a dental visit in the last 12 months?: No Did you have a dental problem in the last 6 months where you did not have access to dental care?: No Was dental information given to patient?: No PFSH Medical History Blood pressure elevated without history of HTN Abnormal echocardiogram History of COVID-19 Nicotine dependence, cigarettes, uncomplicated Shortness of breath Abnormal stress test Precordial chest pain Degenerative cervical disc Anxiety Herniation of left side of L4-L5 intervertebral disc Surgical History History of esophagogastroduodenoscopy (EGD) History of colonoscopy Complete rotator cuff tear of left shoulder Family History Brother Prostate cancer Testicular cancer Renal cancer Ascending aorta dilatation Mother Ovarian cancer Father Multiple myeloma Social History Household Members: Family Housing: House Alcohol intake: never Patient Tobacco Use Status: Current everyday Tobacco user Tobacco use type: Cigarette Cigarette Packs Per Day: 0.5 Cigarettes Per Day: 10 Years Smoked: onset 15yo, 1/2-3/4ppd x 43yrsm 25pyh) e-Cigarette/Vaping Use: Never Used Second Hand Smoke Exposure: Yes Substance Use Type: Marijuana service: No Current occupational status: retired 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 1. Little interest or pleasure in doing things: not at all 2. Feeling down, depressed, or hopeless: not at all 3. Trouble falling or staying asleep, or sleeping too much: not at all 4. Feeling tired or having little energy: not at all 5. Poor appetite or overeating: not at all 6. Feeling bad about yourself - or that you are a failure or have let yourself or your family down: not at all 7. Trouble concentrating on things, such as reading the newspaper or watching television: not at all 8. Moving or speaking so slowly that other people could have noticed. Or the opposite - being so fidgety or restless that you have been moving around a lot more than usual: not at all 9. Thoughts that you would be better off or of hurting yourself in some way: not at all Total score: 0 Depression Screening Interpretation: Negative Depression Screening Done: Yes Source: Developed by Drs. Inocencio Valle, Nupur Cooper, Kirt Fuller and colleagues, with an educational jameson from [employer]. Thrive Questionnaire Date Thrive assessed: 08/11/24 I am a: Patient What is your living situation today?: I have a steady place to live Within the past 12 months, did the food you bought not last and you didn't have the money to get more?: Never true Within the past 12 months, did you worry whether your food would run out before you got money to buy more?: Never true Do you have trouble paying for medicines?: No Do you have trouble getting transportation to medical appointments?: No Do you have trouble paying your heating and electricity bill?: No Do you have trouble taking care of your child, family member or friend?: No Do you have trouble with day-to-day activities such as bathing, preparing meals, shopping, managing finances, etc.?: No Are you currently unemployed and looking for a job?: No Are you interested in more education?: No Please select the resources that you would like help with: None Currently or been in a relationship where the following occur: No concerns reported THRIVE Score: 0 AUDIT C Alcohol Use Questionnaire (AUDIT-C) 1. How often do you have a drink containing alcohol?: Never 3. How often do you have six or more drinks on one occasion?: Never Total Score: 0 CATALINO-7 AMB Questionnaire CATALINO-7 Date CATALINO - 7 assessed: 08/11/24 Feeling nervous, anxious, or on edge: 3 = Nearly every day Not being able to stop or control worryin = Several days Worrying too much about different things: 1 = Several days Trouble relaxin = More than half the days Being so restless that it is hard to sit still: 2 = More than half the days Becoming easily annoyed or irritable: 2 = More than half the days Feeling afraid as if something awful might happen: 3 = Nearly every day Total CATALINO-7 score (0-4 normal; 5-9 mild; 10-14 moderate; 15-21 severe): 14 Source: Developed by Drs. Inocencio Valle, Nupur Cooper, Kirt Fuller and colleagues, with an educational jameson from [employer]. Physical exam (Primary Care) Vital Signs: Last Vital Signs Temp 97.0 F 10/12/24 15:25 Pulse 72 10/12/24 15:25 BP 128/72 10/12/24 15:25 Pulse Ox 94 10/12/24 15:25 Oxygen Delivery Method Room Air 10/12/24 15:25 BMI result Body Mass Index 28.2 Tobacco/Smoking Status: Tobacco use Status Tobacco use date assessed 08/11/24 10/12/24 15:27 Patient Tobacco Use Status Current everyday Tobacco 10/12/24 15:27 Tobacco use type Cigarette 10/12/24 15:27 e-Cigarette/Vaping Use Never Used 10/12/24 15:27 PHQ-9: PHQ-9 Score PHQ-9: Total score 0 10/12/24 15:28 Depression Screening Interpretation: Negative Thrive Assessment: Date of Thrive Assessment Date Thrive assessed 08/11/24 10/12/24 15:27 Currently or been in a relationship where the following occur: No concerns reported Const General: alert; No acute distress Eyes Conjunctivae: conjunctivae normal Resp Auscultation: clear to auscultation bilaterally Cardio Rate: regular rate Rhythm: regular rhythm GI Inspection: Yes normal to inspection Extrem General: Yes normal to inspection and No edema Coding Level of Care Code Est Pt Level 4 (66833) Complex EM visit Add On G2211 Diagnoses Mild intermittent asthma without complication J45.20 Asthma complication type: uncomplicated Asthma persistence: intermittent Asthma severity: mild Gastroesophageal reflux disease without esophagitis K21.9 Esophagitis presence: without esophagitis Generalized anxiety disorder F41.1 Ascending aorta dilatation I77.810 Nicotine dependence, cigarettes, uncomplicated F17.210 Tobacco abuse Z72.0 Assessment & Plan Assessment & Plan (1) Asthma: Code(s): J45.909 - Unspecified asthma, uncomplicated Category: Medical Qualifiers: Asthma complication type: uncomplicated Asthma persistence: intermittent Asthma severity: mild Qualified Code(s): J45.20 - Mild intermittent asthma, uncomplicated Plan: Continue with albuterol inhaler as needed (2) GERD (gastroesophageal reflux disease): Code(s): K21.9 - Gastro-esophageal reflux disease without esophagitis Category: Medical Qualifiers: Esophagitis presence: without esophagitis Qualified Code(s): K21.9 - Gastro-esophageal reflux disease without esophagitis Plan: Avoid the foods that causes that usually spicy foods, tomato products, juices, coffee, soda and foods that your sensitive to. After eating do not lie down, allow 3-4 hours before in lie down. And keep the head of bed above 30 degrees to avoid the acid from going up. (3) Generalized anxiety disorder: Comment: declined 05/2021 Code(s): F41.1 - Generalized anxiety disorder Category: Medical Plan: Continue with lorazepam as needed (4) Ascending aorta dilatation: Comment: (mid ascending aorta measured 3.8cm on 09/07/2021 chest CTA) May [address] scan 4.1 cm Code(s): I77.810 - Thoracic aortic ectasia Category: Medical Plan: Discussed about doing another test for follow-up of the ascending aorta (5) Nicotine dependence, cigarettes, uncomplicated: Comment: (Current smoker - onset 15yo, 1/2-3/4ppd x 43yrsm 25pyh) CT scan July 2023 Code(s): F17.210 - Nicotine dependence, cigarettes, uncomplicated Category: Medical Plan: Patient is strongly advised to stop smoking and reminded about cat scan for lung cancer screening program (6) Tobacco abuse: Code(s): Z72.0 - Tobacco use Category: Medical Plan: still smoking 80 10 in a day patient is strongly advised to stop smoking Plan History of Present Illness The patient is a 59-year-old male presenting for follow-up related to a lung cancer screening program and the management of several chronic medical conditions. He has a known history of ulcerative colitis with the last colonoscopy performed in 2010, inciting a need for updated evaluation. Asthma is managed with as-needed use of an albuterol inhaler, and generalized anxiety disorder is addressed with as-needed use of lorazepam. He has a history of ascending aorta dilation with the last CT in July 2023 documenting a measurement of 4.1 cm, necessitating continued surveillance. The patient is under a lung cancer screening program due to his history of pulmonary nodules and significant smoking habits, currently reporting smoking 8 to 10 cigarettes per day. The patient acknowledges difficulty with smoking cessation despite attempts and meetings for support. Routine blood work from March 2024 was normal, and there is a plan to repeat PSA testing. He reports nocturnal episodes of breathing difficulty with productive cough, raising concerns regarding potential COPD development. Discussions include the need for follow-up tests and referral logistics concerning colonoscopy and lung cancer screening. The patient acknowledges follow-up for the aorta enlargement with an ultrasound planned. Health Maintenance - Discussion of smoking cessation strategies and potential benefits. - Plan to schedule colonoscopy for ulcerative colitis surveillance. - Follow-up on dilation of ascending aorta with planned ultrasound. - Reevaluation of PSA levels. - Plan for follow-up CAT scan under the lung cancer screening program. Social History - History of significant cigarette smoking, currently at 8 to 10 cigarettes per day. - Participated in support meetings for smoking cessation. Review of Systems - Respiratory: Reports difficulty breathing at night with expectoration of phlegm. - Neurological/Psychiatric: Denies changes in anxiety management, continues with lorazepam as needed. - Gastrointestinal: Denies symptom exacerbation of ulcerative colitis since the last colonoscopy. - General: Reports smoking 8 to 10 cigarettes per day; denies cessation. Physical Exam Results - Labs from March 2024: Normal blood count, electrolytes, renal function, blood sugar, liver function. - Imaging: Last CT of ascending aorta in July 2023 showed a measurement of 4.1 cm. Plan The patient will continue with the albuterol inhaler for asthma management. Lorazepam will be used as needed for anxiety. A colonoscopy is needed for ulcerative colitis surveillance; this will be scheduled with Dr. Ovalle. Surveillance for ascending aorta dilation will continue with an ultrasound. The patient is advised to proceed with a follow-up CT scan as part of the lung cancer screening protocol. Smoking cessation support will be reinforced, given the pulmonary risk factors, and PSA levels will be monitored accordingly. Patient was informed and verbally consented to the use of an ambient scribe for clinic note documentation during this visit. Discussion Notes We discussed the importance of continued health monitoring of the patient's chronic conditions, including follow-up imaging for lung nodules and aortic dilation. The risks associated with smoking and benefits associated with cessation were reviewed, aiming to empower the patient to strive towards reducing cigarette consumption. The logistics of scheduling a colonoscopy and securing appropriate referrals were also addressed. Options for diagnostic imaging modalities were outlined, emphasizing compliance with prior recommendations. Future follow-ups concerning lung screening and cardiovascular assessments were highlighted, ensuring the patient understands the need for ongoing surveillance in these areas. Patient Instructions - Schedule and complete colonoscopy with Dr. Ovalle. - Continue using the albuterol inhaler as needed for asthma. - Maintain lorazepam use as needed for anxiety. - Schedule follow-up ultrasound for aortic dilation. - Follow lung cancer screening recommendations; arrange upcoming CAT scan. - Work on smoking cessation, given its significant health risks. - Repeat blood work as advised, including fasting for optimal results. - Follow up with cardiology and address any changes in symptoms. Orders: Orders Complete Blood Count Auto Diff Today K21.9 - Gastro-esophageal reflux disease without esophagitis Free T4 (Free Thyroxine) Today K21.9 - Gastro-esophageal reflux disease without esophagitis Lipid Panel Today E78.00 - Pure hypercholesterolemia, unspecified, K21.9 - Gastro-esophageal reflux disease without esophagitis Vitamin B12 and Folate Today K21.9 - Gastro-esophageal reflux disease without esophagitis Comprehensive Met. Panel Today K21.9 - Gastro-esophageal reflux disease without esophagitis Thyroid Stimulating Hormone Today K21.9 - Gastro-esophageal reflux disease without esophagitis Prostate Specific Antigen Scr Today K21.9 - Gastro-esophageal reflux disease without esophagitis Referrals Gastroenterology Referral Z12.11 - Encounter for screening for malignant neoplasm of colon
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
== END 2024-10-12 15:40 | disposition home or self-care (01) ==
LOC: HO.HMCH 15:21
PROVIDERS: PCP Internal Medicine; Visit Provider Internal Medicine
DX: J45.20 Mild intermittent asthma, uncomplicated (principal); I77.810 Thoracic aortic ectasia; K21.9 Gastro-esophageal reflux disease without esophagitis; F41.1 Generalized anxiety disorder; F17.210 Nicotine dependence, cigarettes, uncomplicated; Z72.0 Tobacco use

== ENCOUNTER → 2024-10-12 15:21 | Outpatient (BNVA) | payer BC, SELFPAY | PROVIDERS: PCP Internal Medicine; Visit Provider Internal Medicine | DX: Z13.89 Encounter for screening for other disorder (principal) ==

== ENCOUNTER 2025-02-05 09:51 | Outpatient (REF) | payer BC, SELFPAY ==
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
[2025-02-05 10:52] LABS: MANUAL DIFF FLAG NO
[2025-02-05 10:58] LABS: Hematocrit 43.6 % (42.0-52.0); Hemoglobin 15.2 g/dl (14.0-18.0); Imm Gran Abs Auto 0.06 X10*3/uL (0.00-0.03); Imm Gran Pct Auto 0.7 % (0.0-0.4); Lymphocytes Absolute Auto 3.1 X10*3/uL (1.2-4.9); Mean Corpuscular HGB Conc 34.9 g/dl (31.0-36.0); Mean Corpuscular Hemoglobin 31.3 pg (27.0-33.0); Mean Corpuscular Volume 89.7 fL (80.0-98.0); NRBC Abs Auto 0.000 X10*3/uL (0.0-0.012); NRBC Pct Auto 0.0 /100WBC (0.0-0.2); Platelet Count 314 X10*3/uL (160-400); Red Blood Count 4.86 X10*6/uL (4.60-5.80); White Blood Count 8.6 X10*3/uL (4.8-10.8)
[2025-02-05 11:25] LABS: Alanine Aminotransferase 36 U/L (0-40); Albumin Level 4.0 g/dL (3.5-5.0); Alkaline Phosphatase 93 U/L (39-117); Anion Gap 10 (12-20); Aspartate Amino Transferase 30 U/L (5-37); Blood Urea Nitrogen 16 mg/dL (9-16); Calcium 8.7 mg/dL (8.4-10.2); Carbon Dioxide 26 mmol/L (22-29); Chloride 108 mmol/L (96-108); Cholesterol 158 mg/dL (<200); Estimated Glomerular Filt Rate > 60; HDL Cholesterol 35 mg/dL (>40); Potassium 4.4 mmol/L (3.3-5.1); Sodium 140 mmol/L (135-145); Total Protein 6.8 g/dL (6.5-8.0); Triglycerides 189 mg/dL (<150)
[2025-02-05 11:30] LABS: Free T4 (Free Thyroxine) 0.88 ng/dL (0.71-1.85); Thyroid Stimulating Hormone 1.64 uIU/mL (0.32-4.0)
[2025-02-05 12:05] LABS: Folate 6.7 ng/mL (> or = 4.0); Vitamin B12 356 pg/mL (200-900)
== END 2025-02-05 09:52 | disposition home or self-care (01) ==
LOC: HO.10HDL 09:51
PROVIDERS: Visit Provider Internal Medicine
DX: Z12.5 Encounter for screening for malignant neoplasm of prostate (principal); K21.9 Gastro-esophageal reflux disease without esophagitis; E78.00 Pure hypercholesterolemia, unspecified
CPT/HCPCS: 36415; 80053; 80061; 82607; 82746; 84153; 84439; 84443; 85025

== ENCOUNTER 2025-02-08 14:40 | Outpatient (AMB) | payer BC, SELFPAY ==
--- NOTE | 2025-02-08 14:48 | MHC.PC.OV ---
Vital Signs 02/08/25 14:49 Height 6 ft 2 in Weight 218 lb 8 oz BMI 28.1 BP 120/68 Blood Pressure Location Lt brachial Position Sitting Pulse 69 Pulse Source Pulse Oximeter Temp 97.3 F Temp Source Temporal Artery Scan Pulse Oximetry (%) 96 Oxygen Delivery Method Room Air Intake Visit Reasons: tobacco abuse, Intake Note: Patient is here to follow up on Tobacco abuse. Oil And Gas Drafter Required: No Directional Drill Operator: Not Required per policy Accompanied by: Self / Same As Patient Allergies codeine (CODEINE) Allergy (Unknown, Verified 02/08/25 14:49) LIGHT HEADED , nausea erythromycin base (ERYTHROMYCIN BASE) Allergy (Unknown, Verified 02/08/25 14:49) RASH Medication List - Last Reconciled 02/08/25 by Cammy Penaloza MD albuterol sulfate 90 mcg/actuation (ProAir HFA) 2 puffs inhalation Q6H PRN atorvastatin 20 mg PO QPM levofloxacin 500 mg PO ONCE 3 days lorazepam 2 mg (2 x 1 mg) PO BID PRN omeprazole 40 mg PO DAILY quetiapine 150 mg (3 x 50 mg) PO BEDTIME 90 days Tobacco use date assessed: 02/08/25 Dental Screening Dental Screen Date: 08/11/24 [facility] Medical History Blood pressure elevated without history of HTN Abnormal echocardiogram History of COVID-19 Nicotine dependence, cigarettes, uncomplicated Shortness of breath Abnormal stress test Precordial chest pain Degenerative cervical disc Anxiety Herniation of left side of L4-L5 intervertebral disc Surgical History History of esophagogastroduodenoscopy (EGD) History of colonoscopy Complete rotator cuff tear of left shoulder Family History Brother Prostate cancer Testicular cancer Renal cancer Ascending aorta dilatation Mother Ovarian cancer Father Multiple myeloma Social History Household Members: Family Housing: House Alcohol intake: never Patient Tobacco Use Status: Current everyday Tobacco user Tobacco use type: Cigarette Cigarette Packs Per Day: 0.5 Cigarettes Per Day: 10 Years Smoked: onset 15yo, 1/2-3/4ppd x 42yrsm 25pyh) e-Cigarette/Vaping Use: Never Used Second Hand Smoke Exposure: Yes Substance Use Type: Marijuana service: No Current occupational status: retired 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 1. Little interest or pleasure in doing things: not at all 2. Feeling down, depressed, or hopeless: not at all 3. Trouble falling or staying asleep, or sleeping too much: not at all 4. Feeling tired or having little energy: not at all 5. Poor appetite or overeating: not at all 6. Feeling bad about yourself - or that you are a failure or have let yourself or your family down: not at all 7. Trouble concentrating on things, such as reading the newspaper or watching television: not at all 8. Moving or speaking so slowly that other people could have noticed. Or the opposite - being so fidgety or restless that you have been moving around a lot more than usual: not at all 9. Thoughts that you would be better off or of hurting yourself in some way: not at all Total score: 0 Depression Screening Interpretation: Negative Depression Screening Done: Yes Source: Developed by Drs. Inocencio Valle, Nupur Cooper, Kirt Fuller and colleagues, with an educational jameson from [employer]. Thrive Questionnaire Date Thrive assessed: 08/11/24 I am a: Patient What is your living situation today?: I have a steady place to live Within the past 12 months, did the food you bought not last and you didn't have the money to get more?: Often true Within the past 12 months, did you worry whether your food would run out before you got money to buy more?: Often true Do you have trouble paying for medicines?: No Do you have trouble getting transportation to medical appointments?: No Do you have trouble paying your heating and electricity bill?: No Do you have trouble taking care of your child, family member or friend?: No Do you have trouble with day-to-day activities such as bathing, preparing meals, shopping, managing finances, etc.?: No Are you currently unemployed and looking for a job?: No Are you interested in more education?: No Please select the resources that you would like help with: None Currently or been in a relationship where the following occur: I choose not to answer THRIVE Score: 2 AUDIT C Alcohol Use Questionnaire (AUDIT-C) 1. How often do you have a drink containing alcohol?: Never Total Score: 0 CATALINO-7 AMB Questionnaire CATALINO-7 Date CATALINO - 7 assessed: 08/11/24 Feeling nervous, anxious, or on edge: 0 = Not at all Not being able to stop or control worryin = Not at all Worrying too much about different things: 0 = Not at all Trouble relaxin = Not at all Being so restless that it is hard to sit still: 0 = Not at all Becoming easily annoyed or irritable: 0 = Not at all Feeling afraid as if something awful might happen: 0 = Not at all Total CATALINO-7 score (0-4 normal; 5-9 mild; 10-14 moderate; 15-21 severe): 0 Source: Developed by Drs. Inocencio Valle, Nupur Cooper, Kirt Fuller and colleagues, with an educational jameson from [employer]. Physical exam (Primary Care) Vital Signs: Last Vital Signs Temp 97.3 F 02/08/25 14:49 Pulse 69 02/08/25 14:49 BP 120/68 02/08/25 14:49 Pulse Ox 96 02/08/25 14:49 Oxygen Delivery Method Room Air 02/08/25 14:49 BMI result Body Mass Index 28.1 Tobacco/Smoking Status: Tobacco use Status Tobacco use date assessed 02/08/25 02/08/25 14:55 Patient Tobacco Use Status Current everyday Tobacco 02/08/25 14:55 Tobacco use type Cigarette 02/08/25 14:55 e-Cigarette/Vaping Use Never Used 02/08/25 14:55 PHQ-9: PHQ-9 Score PHQ-9: Total score 0 02/08/25 15:09 Depression Screening Interpretation: Negative Thrive Assessment: Date of Thrive Assessment Date Thrive assessed 08/11/24 02/08/25 14:55 Currently or been in a relationship where the following occur: I choose not to answer Const General: alert; No acute distress Eyes Conjunctivae: conjunctivae normal Resp Auscultation: clear to auscultation bilaterally Cardio Rate: regular rate Rhythm: regular rhythm GI Inspection: Yes normal to inspection Extrem General: Yes normal to inspection and No edema Coding Level of Care Code Est Pt Level 4 (04787) Complex EM visit Add On G2211 Diagnoses Ulcerative pancolitis without complication K51.00 Digestive disease complication type: without complication Ulcerative colitis location: ulcerative pancolitis Colon cancer screening Z12.11 Gastroesophageal reflux disease without esophagitis K21.9 Esophagitis presence: without esophagitis Abnormal PSA R97.20 Pulmonary nodules R91.8 Nicotine dependence, cigarettes, uncomplicated F17.210 Ascending aorta dilatation I77.810 Generalized anxiety disorder F41.1 Assessment & Plan Assessment & Plan (1) Ulcerative colitis: Onset Date: ~1999 Comment: Dr. Ovalle Code(s): K51.90 - Ulcerative colitis, unspecified, without complications Category: Medical Qualifiers: Digestive disease complication type: without complication Ulcerative colitis location: ulcerative pancolitis Qualified Code(s): K51.00 - Ulcerative (chronic) pancolitis without complications Plan: Patient continue to follow-up with Gastroenterology and due for colonoscopy (2) Colon cancer screening: Code(s): Z12.11 - Encounter for screening for malignant neoplasm of colon Category: Medical Plan: Reminded about colonoscopy. Dr. Ovalle march, (3) GERD (gastroesophageal reflux disease): Code(s): K21.9 - Gastro-esophageal reflux disease without esophagitis Category: Medical Qualifiers: Esophagitis presence: without esophagitis Qualified Code(s): K21.9 - Gastro-esophageal reflux disease without esophagitis Plan: Avoid the foods that causes that usually spicy foods, tomato products, juices, coffee, soda and foods that your sensitive to. After eating do not lie down, allow 3-4 hours before in lie down. And keep the head of bed above 30 degrees to avoid the acid from going up. (4) Abnormal PSA: Code(s): R97.20 - Elevated prostate specific antigen [PSA] Category: Medical Plan: Patient has an elevated PSA (5) Pulmonary nodules: Comment: (9x5cm RUL spiculated nodule, 10x6mm RLL spiculated nodule on 03/08/23 LDCT - plan is for PFTs, PET scan and f/u with Dr. [facility] at [facility]) Code(s): R91.8 - Other nonspecific abnormal finding of lung field Category: Medical Plan: Last CAT scan was July 2023 (6) Nicotine dependence, cigarettes, uncomplicated: Comment: (Current smoker - onset 15yo, 1/2-3/4ppd x 42yrsm 25pyh) CT scan July 2023 Code(s): F17.210 - Nicotine dependence, cigarettes, uncomplicated Category: Medical Plan: Discussed about repeating the CAT scan (7) Ascending aorta dilatation: Comment: (mid ascending aorta measured 3.8cm on 09/07/2021 chest CTA) May [address] scan 4.1 cm Code(s): I77.810 - Thoracic aortic ectasia Category: Medical Plan: Advise following up for echocardiogram to follow-up on the aorta dilatation- will be havinbg a CT scan (8) Generalized anxiety disorder: Comment: declined 05/2021 Code(s): F41.1 - Generalized anxiety disorder Category: Medical Plan: Continue with present medication as needed Plan History of Present Illness The patient is a 59-year-old male presenting for a follow-up visit. The patient has a history of ulcerative colitis, which is managed under the care of a senior receptionist. He is due for a colonoscopy as part of his ongoing management and surveillance. The patient also has a history of asthma and gastroesophageal reflux disease (GERD), both of which are chronic conditions requiring ongoing management. Additionally, the patient has generalized anxiety disorder and a history of ascending aortic dilatation, which was noted during a previous evaluation. The last computed tomography (CT) scan was performed in July 2023, and there is a discussion about repeating the scan to monitor the condition. The patient is a smoker, which is a significant risk factor for his conditions. He has an elevated prostate-specific antigen (PSA) level of 4.09, which requires further evaluation. His blood work from February 05 showed normal blood count, electrolytes, renal function, blood sugar, liver function, folic acid, and thyroid levels, but revealed hypertriglyceridemia with a triglyceride level of 189 mg/dL. Health Maintenance - Colonoscopy is due for ongoing surveillance of ulcerative colitis. - Smoking cessation advised due to its impact on multiple health conditions. Social History - Smoking: Patient is a smoker. Review of Systems Physical Exam Results - Labs: Normal blood count, electrolytes, renal function, blood sugar, liver function, folic acid, and thyroid levels. - Labs: Elevated triglycerides at 189 mg/dL. - Labs: Elevated PSA at 4.09. - Imaging: Last CT scan performed in July 2023. Plan The patient will continue to follow up with gastroenterology for management of ulcerative colitis and is due for a colonoscopy to monitor the condition. Smoking cessation is advised due to its detrimental effects on his health, particularly concerning his respiratory and cardiovascular conditions. The elevated PSA level requires further evaluation to rule out any underlying pathology, and a repeat CT scan is considered to monitor the ascending aortic dilatation. The patient is advised to continue with current medications and follow up with an echocardiogram to assess cardiac function related to the aortic condition. Patient was informed and verbally consented to the use of an ambient scribe for clinic note documentation during this visit. Discussion Notes During the visit, I discussed the importance of continuing follow-up with gastroenterology for ulcerative colitis management and the need for a colonoscopy. I emphasized the significance of smoking cessation due to its impact on his respiratory and cardiovascular health. We also talked about the elevated PSA level, and I recommended further evaluation to rule out any serious conditions. A repeat CT scan was considered to monitor the ascending aortic dilatation, and I advised continuing current medications and following up with an echocardiogram. Patient Instructions - Follow up with gastroenterology for ulcerative colitis management and schedule a colonoscopy. - Quit smoking to improve overall health and reduce risks associated with respiratory and cardiovascular conditions. - Schedule further evaluation for elevated PSA levels. - Continue current medications and follow up with an echocardiogram as advised. Medications: Refilled lorazepam 2 mg (2 x 1 mg) PO BID PRN 60 tabs 0RF anxiety F41.9 - Anxiety disorder, unspecified
[2025-02-08 14:49] VITALS: BP 120/68; PULSE 69; TEMP 36.3; O2SAT 96; BMI 28.1
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
== END 2025-02-08 15:18 | disposition home or self-care (01) ==
LOC: HO.HMCH 14:41
PROVIDERS: PCP Internal Medicine; Visit Provider Internal Medicine
DX: K51.00 Ulcerative (chronic) pancolitis without complications (principal); Z12.11 Encounter for screening for malignant neoplasm of colon; K21.9 Gastro-esophageal reflux disease without esophagitis; R97.20 Elevated prostate specific antigen [PSA]; R91.8 Other nonspecific abnormal finding of lung field; F17.210 Nicotine dependence, cigarettes, uncomplicated; I77.810 Thoracic aortic ectasia; F41.1 Generalized anxiety disorder

== ENCOUNTER 2025-04-09 14:46 | Outpatient (AMB) | payer BC, SELFPAY ==
--- NOTE | 2025-04-09 14:56 | MHC.PC.OV ---
Vital Signs 04/09/25 14:58 Height 6 ft 2 in Weight 216 lb 2 oz BMI 27.7 BP 146/64 H Blood Pressure Location Lt brachial Position Sitting Pulse 87 Pulse Source Pulse Oximeter Temp 97.3 F Temp Source Temporal Artery Scan Pulse Oximetry (%) 97 Oxygen Delivery Method Room Air Intake Visit Reasons: tooth abscess? Intake Note: Patient is here to follow up on Tooth abscess, request for antibiotic. Ring Sorter Required: No Neon Sign Servicer: Not Required per policy Accompanied by: Self / Same As Patient Allergies codeine (CODEINE) Allergy (Unknown, Verified 04/09/25 14:57) LIGHT HEADED , nausea erythromycin base (ERYTHROMYCIN BASE) Allergy (Unknown, Verified 04/09/25 14:57) RASH Tobacco use date assessed: 04/09/25 Dental Screening Dental Screen Date: 08/11/24 HPI HPI Comments History of Present Illness Details 59 y/o Male patient who presents to the clinic today for the same day appointment with c/o Tooth Ache (Lower Jaw) for few days now. He went to see a Dentist - they could not see him because he is a new Patient to their Practice. According to the Patient, he was told to come to the Primary care for Amoxicillin Prescription, because someone at the Dentist's Office thought that the tooth was infected. The next available Appointment with Dentist is in 8-10 days. Pt does not want to wait for that long, because he is in Pain. He has tried to use Oral Gel with no relief. Pt did see his PCP (Dr. BURTON) back in 01/2025 where he reported a Tooth Ache (Different Tooth/upper Jaw) - he did ask for Amoxicillin then and Dr. BURTON advised him to see his Dentist. Pt states that he could not see a Dentist then because he has lots of medical bills pending and did not have enough money. Pt was very upset after I informed him that I could not see an obvious infection, swelling or abscess - and that I will not be prescribing him any Antibiotics and he needed to f/u with his Dentist. Pt stormed out of the visit, turning off room lights and shutting the door forcefully. Why do I have a Primary Doctor who can't Help with, just wasted my time here . [facility] Medical History (Updated 04/09/25 @ 16:52 by Valeria Hamilton NP) Mouth pain Blood pressure elevated without history of HTN Abnormal echocardiogram History of COVID-19 Nicotine dependence, cigarettes, uncomplicated Shortness of breath Abnormal stress test Precordial chest pain Degenerative cervical disc Anxiety Herniation of left side of L4-L5 intervertebral disc Surgical History History of esophagogastroduodenoscopy (EGD) History of colonoscopy Complete rotator cuff tear of left shoulder Family History Brother Prostate cancer Testicular cancer Renal cancer Ascending aorta dilatation Mother Ovarian cancer Father Multiple myeloma Social History Household Members: Family Housing: House Alcohol intake: never Patient Tobacco Use Status: Current everyday Tobacco user Tobacco use type: Cigarette Cigarette Packs Per Day: 0.5 Cigarettes Per Day: 10 Years Smoked: onset 15yo, 1/2-3/4ppd x 42yrsm 25pyh) Packs Per Year: 0 Packs per year/per ci.00 e-Cigarette/Vaping Use: Never Used Second Hand Smoke Exposure: Yes Substance Use Type: Marijuana service: No Current occupational status: retired 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 Gender identity: Male Cognitive needs: No Hearing needs: No Vision needs: No Questionnaire Thrive Questionnaire Date Thrive assessed: 02/08/25 I am a: Patient What is your living situation today?: I have a steady place to live Within the past 12 months, did the food you bought not last and you didn't have the money to get more?: Often true Within the past 12 months, did you worry whether your food would run out before you got money to buy more?: Often true Do you have trouble paying for medicines?: No Do you have trouble getting transportation to medical appointments?: No Do you have trouble paying your heating and electricity bill?: No Do you have trouble taking care of your child, family member or friend?: No Do you have trouble with day-to-day activities such as bathing, preparing meals, shopping, managing finances, etc.?: No Are you currently unemployed and looking for a job?: No Are you interested in more education?: No Please select the resources that you would like help with: None Currently or been in a relationship where the following occur: I choose not to answer THRIVE Score: 2 CATALINO-7 AMB Questionnaire CATALINO-7 Date CATALINO - 7 assessed: 08/11/24 Source: Developed by Drs. Inocencio Valle, Nupur Cooper, Kirt Fuller and colleagues, with an educational jameson from [employer]. Review of Systems Const All systems reviewed & are unremarkable except as noted in HPI and below Physical exam (Primary Care) Vital Signs: Last Vital Signs Temp 97.3 F 04/09/25 14:58 Pulse 87 04/09/25 14:58 BP 146/64 H 04/09/25 14:58 Pulse Ox 97 04/09/25 14:58 Oxygen Delivery Method Room Air 04/09/25 14:58 BMI result Body Mass Index 27.7 Tobacco/Smoking Status: Tobacco use Status Tobacco use date assessed 04/09/25 04/09/25 15:06 Patient Tobacco Use Status Current everyday Tobacco 04/09/25 15:06 Tobacco use type Cigarette 04/09/25 15:06 e-Cigarette/Vaping Use Never Used 04/09/25 15:06 Thrive Assessment: Date of Thrive Assessment Date Thrive assessed 02/08/25 04/09/25 15:06 Currently or been in a relationship where the following occur: I choose not to answer Const Orientation/consciousness: patient oriented x3 HENMT Face and sinus: Yes sinuses nontender, Yes face symmetric, No erythema and Yes other (No facial swelling ) Mouth: moist mucous membranes and other (Mild Tenderness left lower Jaw) Teeth and gingiva: gingiva normal, caries, multiple restorations, poor dentition and other (No abscess seen, Gums [place] non edematous. ) Throat: Yes uvula midline Neuro General: patient oriented x3 Psych Appearance: grossly normal Speech and movement: Psychomotor agitation in speech present Affect: Indifferent affect present and Irritable affect present Attitude: Belligerent attititude/behavior present (Upset, angry ) Coding Level of Care Code Est Pt Level 4 (80381) Diagnoses Mouth pain K13.79 Time Spent (min) 20 Assessment & Plan Assessment & Plan (1) Mouth pain: Code(s): K13.79 - Other lesions of oral mucosa Category: Medical Plan: No abscess, no facial swelling, mild Tenderness left Lower Jaw. He does have poor dentition with multiple jain. Advised him I do not feel comfortable prescribing an Abx because he is demanding it - without obvious abscess on examination of mouth. Advised Pt to follow up with Dentist - since we are not able to diagnose and treat Dental/Mouth diseases. Pt left the exam room angry.
[2025-04-09 14:58] VITALS: BP 146/64; PULSE 87; TEMP 36.3; O2SAT 97; BMI 27.7
== END 2025-04-09 15:36 | disposition home or self-care (01) ==
LOC: HO.HMCH 14:47
PROVIDERS: PCP Internal Medicine; Visit Provider Nurse Practitioner Family
DX: K13.79 Other lesions of oral mucosa (principal)